=== PATIENT | male | born 1955 | race Caucasian/White ===

== ENCOUNTER 2023-07-31 09:29 | Emergency (ER) | payer MEDICARE, SELFPAY ==
[2023-07-31] VITALS (12 sets, daily range): BP systolic 132–171; BP diastolic 75–93; PULSE 51–65; TEMP 37; O2SAT 94–97; BMI 27.0
--- NOTE | 2023-07-31 09:41 | ECG_ITS ---
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
--- NOTE | 2023-07-31 09:41 | CT_ITS ---
The [address] [address] Patient Name: ALVIN JUNG MRN: [id number] date: 1955 Sex: M Assigned Patient Location: ER Current Patient Location: ER Accession/Order Number: [id number] Exam Date: 07/31/2023 09:45 Report Date: 07/31/2023 10:07 At the request of: FRANK ESCOBAR Procedure: CT stroke head/brain wo con EXAMINATION: CT stroke head/brain wo con HISTORY: right sided paresthesia COMPARISON: No relevant comparison available. TECHNIQUE: Axial CT images were obtained without IV contrast. Dose reduction techniques were achieved by using automated exposure control and/or adjustment of mA and/or kV according to patient size and/or use of iterative reconstruction technique. FINDINGS: BRAIN: Old lacunar infarctions within the basal ganglia bilaterally. No edema, hemorrhage, mass, acute infarction, or inappropriate atrophy. CSF SPACES: No hydrocephalus, subarachnoid hemorrhage, or mass. Appropriate for age. SKULL: No fracture, mass, or other significant visible lesion. SINUSES: Scattered areas of mild-moderate mucosal thickening. ORBITS: No appreciable abnormality on the limited views. OTHER: Negative CT/CT stroke head/brain wo con IMPRESSION: 1. No intracranial hemorrhage or CT evidence of acute ischemia. 2. Old lacunar infarctions within the basal ganglia bilaterally. 3. Chronic sinusitis. Findings discussed with Reynold in the emergency department to be relayed to Dr. Escobar. Electronically authenticated by: BROOKLYN WILSON Date: 07/31/2023 10:07
--- NOTE | 2023-07-31 09:44 | ED_ITS ---
HPI - Neuro Symptoms/Deficit General Chief Complaint: Neuro Symptoms/Deficit Stated Complaint: CVA SYMPTOMS Time Seen by Provider: 07/31/23 09:31 History of Present Illness HPI Narrative: Patient saw Dr Robertson at the office this morning and was sent to the ED to rule out acute CVA. This morning the patient developed tingling/numbness to the right face and hand around 830am. He is able to talk, ambulate and move all extremities normally, no facial droop. Dr Robertson called and told me that the neuro exam in the office was normal except for the subjective tingling sensations. The patient left us know that he had dental surgery to the right side of his mouth last week. Around 1030pm on 07/29/23 he developed the same tingling/numbness to the right face and right hand while watching, but it went away on its own a short time later. During that initial episode, he once again did not have any facial droop, slurred speech, motor weakness or paralysis Related Data Previous Rx's ?Medication ?Instructions ?Recorded aspirin 81 mg capsule 81 mg PO DAILY #30 caps 07/31/23 clopidogrel 75 mg tablet (Plavix) 75 mg PO DAILY #30 tabs 07/31/23 Allergies Allergy/AdvReac Type Severity Reaction Status Date / Time dexamethasone AdvReac Severe hiccups Verified 07/31/23 09:39 Penicillins AdvReac Intermediate Hives Verified 07/31/23 09:39 Exam Narrative Exam Narrative: Nurses notes and vital signs reviewed and patient is not hypoxic. afebrile General: Well-appearing and in no apparent distress. Skin: Warm, dry, no pallor noted. Head: Normocephalic, atraumatic. Neck: Supple, non-tender. No meningismus. Eye: Pupils are equal, round and EOMI. No scleral icterus. Ears, Nose, Mouth, and Throat: No slurred speech, facial droop or tongue deviation on Extrusion. He is able to wrinkle his forehead symmetrically Cardiovascular: Regular Rate and Rhythm without murmur, gallop or rub. Respiratory: No accessory muscle use or respiratory distress. Lungs are clear to auscultation, no wheezing, rales or rhonchi Musculoskeletal: normal ROM Without pronator drift. 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 No tenderness to palpation. Neurological: A&O x4. No cranial nerve dysfunction observed. No truncal atax ia. Moves all extremities. Sensation intact. NIH score equals 0 Psychiatric: Cooperative and interactive. Normal mood and affect. Constitutional Vital Signs, click to edit/add: Last Vital Signs Temp 98.6 F 07/31/23 09:32 Pulse 52 L 07/31/23 10:46 Resp 18 07/31/23 10:46 BP 149/75 H 07/31/23 10:57 Pulse Ox 94 L 07/31/23 10:46 O2 Del Method Room Air 07/31/23 09:32 Course Vital Signs Vital signs: Vital Signs Temperature 98.6 F 07/31/23 09:32 Pulse Rate 65 07/31/23 09:32 Respiratory Rate 16 07/31/23 09:32 Blood Pressure 171/91 H 07/31/23 09:32 Pulse Oximetry 97 07/31/23 09:32 Oxygen Delivery Method Room Air 07/31/23 09:32 Temperature 98.6 F 07/31/23 09:32 Pulse Rate 52 L 07/31/23 10:46 Respiratory Rate 18 07/31/23 10:46 Blood Pressure 149/75 H 07/31/23 10:57 Pulse Oximetry 94 L 07/31/23 10:46 Oxygen Delivery Method Room Air 07/31/23 09:32 MDM - Neuro Symptoms/Deficit MDM Narrative Medical decision making narrative: Patient was sent for noncontrast CT scan of brain per stroke protocol. Patient was placed on bus monitor and EKG obtained. Blood drawn and sent for evaluation. Radiologist called me and reported that non contrast head CT was negative for acute ICH - patient ordered to get CTA head & neck. These were negative for aneurysm, ICH or areas of decreased flow with old lacunar infarctions within the basal ganglia bilaterally but no significant atherosclerotic disease, according to the radiologist's report. He will need an out-patient thryroid US for right lobe nodule, which I let Dr Robertson know about. Case discussed with Dr Robertson and we reviewed the patient's CT scan results, including the physical exam findings. It was decided that the patient would be loaded with plavix, go home with prescriptions for aspirin 81mg and Plavix 75mg daily and see Ailyn in the office for follow up with immediate ED return if he developed any motor dysfunction including ataxia and cranial nerve deficit. Differential Diagnosis Differential diagnosis: Likely subarachnoid hemorrhage, peripheral neuropathy, cerebrovascular accident and transient cerebral ischemia Medical Records Attestation: I reviewed the patient's medical records. Lab Data Attestation: I reviewed the patient's lab results. Labs: Lab Results 07/31/23 Range/Units 10:36 WBC 4.3 (4.0-11.0) 10^3/uL RBC 4.40 L (4.70-6.10) 10^6/uL Hgb 12.9 L (14.0-18.0) g/dL Hct 40.3 L (42.0-54.0) % MCV 91.6 (80.0-94.0) fL MCH 29.3 (25.9-34.0) pg MCHC 32.0 (29.9-35.2) g/dL RDW 11.9 (11.0-15.0) % Plt Count 249 (150-450) 10^3/uL MPV 8.5 L (9.5-13.5) fL Neut % (Auto) 59.9 (43.0-75.0) % Lymph % (Auto) 27.9 (20.5-60.0) % [place] % (Auto) 6.5 (1.7-12.0) % Eos % (Auto) 4.8 (0.9-7.0) % Baso % (Auto) 0.9 (0.2-2.0) % Neut # (Auto) 2.6 (1.4-6.5) 10^3/uL Lymph # (Auto) 1.2 (1.2-3.8) 10^3/uL [place] # (Auto) 0.3 (0.3-0.8) 10^3/uL Eos # (Auto) 0.2 (0.0-0.7) 10^3/uL Baso # (Auto) 0.0 (0.0-0.1) 10^3/uL Abs Immat Gran (auto) 0.00 (0.00-0.03) 10^3/uL Imm/Tot Granulo (auto) 0.0 (0.0-0.5) % PT 11.3 (9.0-11.6) sec INR 1.07 APTT 30.8 (22.3-36.2) sec Sodium 139 (136-145) mmol/L Potassium 4.5 (3.5-5.1) mmol/L Chloride 104 (98-107) mmol/L Carbon Dioxide 28.5 (21.0-32.0) mmol/L Anion Gap 11.0 BUN 15.0 (7.0-18.0) mg/dL Creatinine 0.96 (0.70-1.30) mg/dL Est GFR ( Amer) >60 (>=60) Est GFR (Non-Af Amer) >60 (>=60) BUN/Creatinine Ratio 15.6 Glucose 107 H (74-106) mg/dL Calcium 8.4 L (8.5-10.1) mg/dL Total Bilirubin 0.7 (0.2-1.0) mg/dL AST 18 (15-37) U/L ALT 22 (16-63) U/L Alkaline Phosphatase 68 (46-116) U/L Total Protein 5.7 L (6.4-8.2) g/dL Albumin 3.0 L (3.4-5.0) g/dL Globulin 2.7 g/dL Albumin/Globulin Ratio 1.[address] scan - head: Attestation: I have reviewed the pertinent imaging results. Radiologist's impression: ITS Impressions Brain CT 07/31/23 09:41 IMPRESSION: 1. No intracranial hemorrhage or CT evidence of acute ischemia. 2. Old lacunar infarctions within the basal ganglia bilaterally. 3. Chronic sinusitis. Findings discussed with Reynold in the emergency department to be relayed to Dr. Escobar. Electronically authenticated by: BROOKLYN WILSON Date: 07/31/2023 10:07 Head CTA 07/31/23 10:07 IMPRESSION: 1. Old lacunar infarctions within the basal ganglia bilaterally. 2. Normal CT angiography of the head and neck. 3. No significant atherosclerotic disease. 4. Nonspecific 1.5 cm nodule within right thyroid lobe. Consider nonemergent ultrasound follow-up. 5. Paranasal chronic sinusitis. Electronically authenticated by: BROOKLYN WILSON Date: 07/31/2023 11:16 Neck CTA 07/31/23 10:07 IMPRESSION: 1. Old lacunar infarctions within the basal ganglia bilaterally. 2. Normal CT angiography of the head and neck. 3. No significant atherosclerotic disease. 4. Nonspecific 1.5 cm nodule within right thyroid lobe. Consider nonemergent ultrasound follow-up. 5. Paranasal chronic sinusitis. Electronically authenticated by: BROOKLYN WILSON Date: 07/31/2023 11:16 ECG Data Attestation: I personally reviewed and interpreted this ECG as follows: Interpretation: EKG interpretation: Emergency Department physician interpretation. Normal sinus rhythm at 57bpm. Normal axis, normal intervals and no ST segment elevation or depression. Normal EKG. Discharge Plan Discharge Stand Alone Forms: Portal Instructions Chief Complaint: Neuro Symptoms/Deficit Clinical Impression: Paresthesia, Basal ganglia infarction Patient Disposition: Home, Self-Care Time of Disposition Decision: 11:27 Prescriptions / Home Meds: New aspirin 81 mg capsule 81 mg PO DAILY Qty: 30 0RF clopidogrel [Plavix] 75 mg tablet 75 mg PO DAILY Qty: 30 0RF Print Language: Luxembourgish Instructions: Paresthesia (ED) Referrals: Duc Robertson MD [Primary Care Provider] - 1 week
--- NOTE | 2023-07-31 10:07 | CT_ITS ---
[address] [address] Patient Name: ALVIN JUNG MRN: [id number] date: 1955 Sex: M Assigned Patient Location: ER Current Patient Location: LAB Accession/Order Number: [id number] Exam Date: 07/31/2023 10:23 Report Date: 07/31/2023 11:16 At the request of: FRANK CAPPS Procedure: CT angio head EXAMINATION: CT angio neck, CT angio head HISTORY: right facial and right hand paresthesia COMPARISON: CT head without contrast 07/31/2023 TECHNIQUE: Axial, Coronal, and Sagittal CT images with IV contrast. Multi-planar/3-D imaging to optimize visualization of vascular anatomy. Percent stenosis is based on NASCET criteria. Dose reduction techniques were achieved by using automated exposure control and/or adjustment of mA and/or kV according to patient size and/or use of iterative reconstruction technique. FINDINGS: HEAD: VASCULATURE: No significant stenosis. No visible aneurysm or vascular malformation. VENTRICLES: No enlargement or displacement. CEREBRUM: Old lacunar infarctions within the basal ganglia bilaterally. No excessive atrophy, mass, or hemorrhage, or abnormal enhancement. CEREBELLUM: No excessive atrophy, mass, or hemorrhage, or abnormal enhancement. BRAINSTEM: No excessive atrophy, mass, or hemorrhage, or abnormal enhancement. BASAL CISTERNS: No subarachnoid hemorrhage or effacement. SKULL: Negative. NECK: RIGHT INTERNAL CAROTID: No hemodynamically significant stenosis or dissection. EXTERNAL CAROTID: No hemodynamically significant stenosis or dissection. COMMON CAROTID: No hemodynamically significant stenosis or dissection. VERTEBRAL: No hemodynamically significant stenosis or dissection. LEFT INTERNAL CAROTID: No hemodynamically significant stenosis or dissection. EXTERNAL CAROTID: No hemodynamically significant stenosis or dissection. COMMON CAROTID: No hemodynamically significant stenosis or dissection. VERTEBRAL: No hemodynamically significant stenosis or dissection. OTHER: 1.5 cm nodule within right thyroid lobe. Mucosal thickening within the paranasal sinuses. There is seen now busy so [ CT/CT angio head IMPRESSION: 1. Old lacunar infarctions within the basal ganglia bilaterally. 2. Normal CT angiography of the head and neck. 3. No significant atherosclerotic disease. 4. Nonspecific 1.5 cm nodule within right thyroid lobe. Consider nonemergent ultrasound follow-up. 5. Paranasal chronic sinusitis. Electronically authenticated by: BROOKLYN WILSON Date: 07/31/2023 11:16
--- NOTE | 2023-07-31 10:07 | CT_ITS ---
[address] [address] Patient Name: ALVIN JUNG MRN: [id number] date: 1955 Sex: M Assigned Patient Location: ER Current Patient Location: LAB Accession/Order Number: [id number] Exam Date: 07/31/2023 10:23 Report Date: 07/31/2023 11:16 At the request of: FRANK CAPPS Procedure: CT angio neck EXAMINATION: CT angio neck, CT angio head HISTORY: right facial and right hand paresthesia COMPARISON: CT head without contrast 07/31/2023 TECHNIQUE: Axial, Coronal, and Sagittal CT images with IV contrast. Multi-planar/3-D imaging to optimize visualization of vascular anatomy. Percent stenosis is based on NASCET criteria. Dose reduction techniques were achieved by using automated exposure control and/or adjustment of mA and/or kV according to patient size and/or use of iterative reconstruction technique. FINDINGS: HEAD: VASCULATURE: No significant stenosis. No visible aneurysm or vascular malformation. VENTRICLES: No enlargement or displacement. CEREBRUM: Old lacunar infarctions within the basal ganglia bilaterally. No excessive atrophy, mass, or hemorrhage, or abnormal enhancement. CEREBELLUM: No excessive atrophy, mass, or hemorrhage, or abnormal enhancement. BRAINSTEM: No excessive atrophy, mass, or hemorrhage, or abnormal enhancement. BASAL CISTERNS: No subarachnoid hemorrhage or effacement. SKULL: Negative. NECK: RIGHT INTERNAL CAROTID: No hemodynamically significant stenosis or dissection. EXTERNAL CAROTID: No hemodynamically significant stenosis or dissection. COMMON CAROTID: No hemodynamically significant stenosis or dissection. VERTEBRAL: No hemodynamically significant stenosis or dissection. LEFT INTERNAL CAROTID: No hemodynamically significant stenosis or dissection. EXTERNAL CAROTID: No hemodynamically significant stenosis or dissection. COMMON CAROTID: No hemodynamically significant stenosis or dissection. VERTEBRAL: No hemodynamically significant stenosis or dissection. OTHER: 1.5 cm nodule within right thyroid lobe. Mucosal thickening within the paranasal sinuses. There is seen now busy so [ CT/CT angio neck IMPRESSION: 1. Old lacunar infarctions within the basal ganglia bilaterally. 2. Normal CT angiography of the head and neck. 3. No significant atherosclerotic disease. 4. Nonspecific 1.5 cm nodule within right thyroid lobe. Consider nonemergent ultrasound follow-up. 5. Paranasal chronic sinusitis. Electronically authenticated by: BROOKLYN WILSON Date: 07/31/2023 11:16
[2023-07-31 10:47] LABS: Basophils Percent Auto 0.9 % (0.2-2.0); Eosinophils Absolute Auto 0.2 10^3/uL (0.0-0.7); Eosinophils Percent Auto 4.8 % (0.9-7.0); Hematocrit 40.3 % (42.0-54.0); Hemoglobin 12.9 g/dL (14.0-18.0); Lymphocytes Absolute Auto 1.2 10^3/uL (1.2-3.8); Lymphocytes Percent Auto 27.9 % (20.5-60.0); Mean Corpuscular Hemoglobin 29.3 pg (25.9-34.0); Mean Corpuscular Volume 91.6 fL (80.0-94.0); Mean Platelet Volume 8.5 fL (9.5-13.5); Monocytes Absolute Auto 0.3 10^3/uL (0.3-0.8); Monocytes Percent Auto 6.5 % (1.7-12.0); Neutrophils Absolute Auto 2.6 10^3/uL (1.4-6.5); Neutrophils Percent Auto 59.9 % (43.0-75.0); Platelet Count 249 10^3/uL (150-450); Red Cell Distribution Width 11.9 % (11.0-15.0); White Blood Count 4.3 10^3/uL (4.0-11.0)
[2023-07-31 11:05] LABS: INR 1.07; Partial Thromboplastin Time 30.8 sec (22.3-36.2); Prothrombin Time 11.3 sec (9.0-11.6)
[2023-07-31 11:11] LABS: Alanine Aminotransferase 22 U/L (16-63); Albumin Globulin Ratio 1.1; Alkaline Phosphatase 68 U/L (46-116); Aspartate Amino Transferase 18 U/L (15-37); BUN Creatinine Ratio 15.6; Bilirubin Total 0.7 mg/dL (0.2-1.0); Calcium 8.4 mg/dL (8.5-10.1); Carbon Dioxide 28.5 mmol/L (21.0-32.0); Chloride 104 mmol/L (98-107); Estimated GFR (African America >60 (>=60); Estimated GFR (Non-African Ame >60 (>=60); Globulin 2.7 g/dL; Glucose 107 mg/dL (74-106); Potassium 4.5 mmol/L (3.5-5.1); Sodium 139 mmol/L (136-145); Total Protein 5.7 g/dL (6.4-8.2)
[2023-07-31] MEDS: ASPIRIN 81 MG TABLET.DR PO (11:48)
[2023-07-31] MEDS: CLOPIDOGREL BISULFATE 75 MG TABLET 300 MG PO (11:48)
== END 2023-07-31 11:56 | disposition home or self-care (01) ==
PROVIDERS: Emergency Provider Emergency Medicine; PCP Family Medicine
DX: R20.2 Paresthesia of skin (principal); Z86.73 Personal history of transient ischemic attack (TIA), and cerebral infarction without residual deficits
CPT/HCPCS: 36415; 70450; 70496; 70498; 80053; 85025; 85610; 85730; 93005; 99285; Q9967

== ENCOUNTER 2023-08-04 14:50 | Outpatient (OUT) | payer MEDICARE, SELFPAY ==
--- NOTE | 2023-08-04 14:54 | US_ITS ---
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 TECHNIQUE: Sonographic images of the thyroid gland were obtained. FINDINGS: The right thyroid lobe is normal in size and contour measuring 4.0 x 1.4 x 1.4 cm. 5 mm cystic lesion with peripheral calcification The thyroid isthmus measures 2.2 mm, normal. The left thyroid lobe is normal in size measuring 4.0 x 1.5 x 1.5 cm. Single nodule stenting into the isthmus. Nodule 1:1.6 x 1.2 x 1.3 cm. Mixed solid and cystic, hypoechoic, tall, smooth margins, no calcifications. Color flow is identified in the soft tissue components. TR 4 US/US thyroid IMPRESSION: 1.6 cm left thyroid TR 4 nodule, consider fine-needle aspiration TI-RADS: The [employer] TI-RADS committee's white paper recommendations for thyroid lesions classified as TR4 (moderately suspicious) are listed below: > 1.0 cm. Follow-up ultrasound in 1, 2, 3, and 5 years. > 1.5 cm. FNA. J. Am Uzair Radiol 2017;14:587-595. Electronically authenticated by: JAKUB PASCAL Date: 08/04/2023 15:27
== END 2023-08-04 14:51 | disposition home or self-care (01) ==
LOC: US 14:50
PROVIDERS: PCP Family Medicine; Visit Provider Family Medicine
DX: E04.1 Nontoxic single thyroid nodule (principal)
CPT/HCPCS: 76536

== ENCOUNTER 2023-08-18 12:13 | Day surgery (SDC) | payer MEDICARE, SELFPAY ==
--- NOTE | 2023-08-18 12:18 | US_ITS ---
The [address] [address] Patient Name: ALVIN JUNG MRN: [id number] date: 1955 Sex: M Assigned Patient Location: US Current Patient Location: US Accession/Order Number: [id number] Exam Date: 08/18/2023 12:20 Report Date: 08/18/2023 13:22 At the request of: OLIVIA SALEH Procedure: US biopsy thyroid EXAMINATION: US biopsy thyroid HISTORY: thyroid nodule COMPARISON: No relevant comparison available. TECHNIQUE: After obtaining informed consent, an ultrasound-guided biopsy was performed in the usual sterile manner. FINDINGS: IMAGING: Ultrasound BIOPSY NEEDLE: 25-gauge, 2 SPECIMEN TYPE, #, LOCATION: 4 fine-needle aspirates, right 1.6 cm thyroid nodule MEDICATION: 2 cc 1% buffered lidocaine COMPLICATIONS: None. LABORATORY: Pathology and molecular studies pending OTHER: Negative. US/US biopsy thyroid IMPRESSION: Uneventful ultrasound guided biopsy. The patient was instructed to obtain follow up care and biopsy results from the referring physician. Electronically authenticated by: JAKUB PASCAL Date: 08/18/2023 13:22
[2023-08-18 12:25] VITALS: BP 150/89; PULSE 59; O2SAT 97
[2023-08-18] MEDS: LIDOCAINE HCL 10 ML, SODIUM BICARBONATE 1 MEQ INJ (13:00)
--- NOTE | 2023-08-18 13:56 | SUR.PREOP ---
08/08/23 Pt instructed on procedure, date, time, and prep. Pt made aware to hold ASA and Clopidogrel for 5 days prior to the biopsy.
== END 2023-08-18 13:20 | disposition home or self-care (01) ==
LOC: US 12:13
PROVIDERS: Radiology Diagnostic Radiology; PCP Family Medicine; Visit Provider Family Medicine
DX: E04.1 Nontoxic single thyroid nodule (principal)
CPT/HCPCS: 10005; 88173

== ENCOUNTER 2023-09-11 08:19 | Outpatient (OUT) | payer MEDICARE, SELFPAY ==
--- OUTSIDE RECORDS SUMMARY | 2023-09-11 08:33 | XMS_ITS | CCD ---
Author Organization [facility] Care Team Providers Care Aerodynamics Professor Name Role Phone DR OLIVIA ROBERTSON Admitting Unavailable DR OLIVIA ROBERTSON Attending Unavailable DR OLIVIA ROBERTSON Primary Care Unavailable DR OLIVIA ROBERTSON Consulting Unavailable Kristen Concepcion Unavailable Deirdre Bradley Unavailable NICHOLAS Bradley Attending Provider Olivia Robertson Primary Care Unavailable Smith Tirado V Attending Unavailable Smith Tirado V Admitting Unavailable MD Olivia Robertson Primary Care Provider [phone] MD Smith Tirado V Attending Provider Allergies Allergy Classification Reported Allergen(s) Allergy Type Date of Onset Reaction(s) Facility (1 source) Penicillin Drug Allergy 12-24-2016 [facility] Repository (2 sources) Penicillin G Drug Allergy [employer] [place] [employer] Other (1 source) Penicillin Drug Allergy 11-05-2021 [facility] Repository Medications Current Medications Medication Drug Class(es) Dates Sig (Normalized) Sig (Original) methylPREDNISolone 4 mg oral tablet (1 source) Corticosteroid Start: 2 methylPREDNISolone 4 MG as directed Orally Once a day for 6 days Oct, Active Completed/Discontinued Medications Medication Drug Class(es) Dates Sig (Normalized) Sig (Original) Ciprofloxacin (2 sources) Quinolone Antimicrobial Ciprofloxacin HCl Not-Taking ibuprofen 800 mg oral tablet (2 sources) Nonsteroidal Anti-inflammatory Drug Start: 04-27-2017 take 1 tablet by mouth three times daily at mealtime as needed Ibuprofen 800 MG 1 tablet with food or milk as needed Orally Three times a day as needed for 30 days Apr, Not-Taking mupirocin 0.02 mg/mg topical ointment (2 sources) RNA Synthetase Inhibitor Antibacterial Start: 10-30-2021 Mupirocin 2 % 1 application Externally Twice a day for 7 days Oct, Not-Taking tamsulosin (2 sources) alpha-Adrenergic Tushar Tamsulosin HCl Not-Taking Triamcinolone (2 sources) Corticosteroid Start: 04-27-2017 KENALOG - 10 mg Apr, 60 mg Problems Active Problems Problem Classification Problem Date Documented Da te Episodic/Chronic Cancer of prostate (4 sources) Malignant neoplasm of prostate; Translations: [MALIGNANT NEOPLASM OF PROSTATE] Onset: 08-01-2021 Chronic Deficiency and other anemia (1 source) Anemia, unspecified; Translations: [ANEMIA UNSPECIFIED] Onset: 08-02-2021 Episodic Diabetes mellitus without complication (1 source) Other abnormal glucose; Translations: [OTHER ABNORMAL GLUCOSE] Onset: 08-02-2021 Episodic Disorders of lipid metabolism (1 source) Hyperlipidemia, unspecified; Translations: [HYPERLIPIDEMIA UNSPECIFIED] Onset: 08-02-2021 Chronic Other screening for suspected conditions (not mental disorders or infectious disease) (1 source) Encounter for screening for malignant neoplasm of prostate; Translations: [ENC SCREEN MALIG NEOPLASM PROSTATE] Onset: 08-02-2021 Episodic Residual codes; unclassified (1 source) Pain, unspecified; Translations: [Pain, unspecified] Onset: 07-31-2023 Episodic Past or Other Problems Problem Classification Problem Date Documented Da te Episodic/Chronic Other injuries and conditions due to external causes (1 source) Other injury of unspecified body region, initial encounter Onset: 10-30-2021 Resolved: 10-30-2021 Episodic Other non-traumatic joint disorders (1 source) Pain in left knee Onset: 11-05-2021 Resolved: 11-05-2021 Episodic Other non-traumatic joint disorders (1 source) Effusion, left knee Onset: 11-05-2021 Resolved: 11-05-2021 Episodic Results Test Name Value Interpretation Reference Range Facility [facility] 08-18-2023 L Specimen: [id number] Received: 08/19/23 Status: AXEL [facility] Num: [id number] Spec Type: Cytology Subm Dr: Smith Tirado MD Tissues: A FNA SLIDES NOPATH (RT THRYOUID NOD) Procedures: Cyto Int and Re, PAPSTN/7 Age/ Patient Sex Location Account Attending Physician Jeff Chawla 68/M LABELL [id number] Smith Tirado MD SPEC NUM: [id number] RECD: 08/19/23 STATUS: AXEL VELA NUM: [id number] DANIS: 08/18/23- SUBM DR: Smith Tirado MD ENTERED: 08/19/[address]: Antonia,Lab Olivia Robertson MD SPEC TYPE: Cytology DEPT: [facility] ENTERED BY: [id number] RECV BY: [id number] ORDERED: Cyto Int and Re, PAPSTN/7 ORDERED: Cyto Int and Re, PAPSTN/7 Pathological Diagnosis Right thyroid nodule, FNA cytology: -Adequate for assessment -The [place] system is category 2: Benign -Quite a few histiocytes are intermixed with occasional small follicular cells with associated fibrin trapping and the minor related cytologic artifact, otherwise is consistent with sampling of the colloid cyst -ThinPrep smear also showing similar findings, including a few small follicular groups with bland looking small follicular cells Gross Description Received in Cytolyt labeled with the patient's name, date of and right thyroid nodule per requisition is <1 ml pale pink clear fixed fluid. 1 Thin Prep slides are prepared. 6 smears, spray fixed to be stained pap are additionally received. (CC/nh) CPT Codes 14945 Specimen: [id number] Received: 08/19/23 Status: AXEL Vela Num: [id number] Spec Type: Cytology Subm Dr: Smith Tirado MD Tissues: A FNA SLIDES NOPATH (RT THRYOUID NOD) Procedures: Cyto Int and Re, PAPSTN/7 Patient: Jeff Chawla [id number] (Continued) Signed (signatur e on file) Ailin Brock MD 08/20/23 1736 Normal [facility] XR knee LT 4V*on 11-05-2021 XR knee LT 4V* [facility] [employer] Other XR knee LT 4V* [facility] [employer] Other XR knee LT 4V* [address] [place] [address] [employer] Other XR knee LT 4V* [place] [address] No [facility] [employer] Other XR knee LT 4V* XRay Report [employer] Other XR knee LT 4V* Signed [employer] Other XR knee LT 4V* Patient: Jeff Chawla MR#: [id number] [place] [employer] Other XR knee LT 4V* 018 [employer] Other XR knee LT 4V* : 1955 Acct:[id number] [employer] Other XR knee LT 4V* Age/Sex: 66 / M ADM Date: 11/05/21 [employer] Other XR knee LT 4V* Loc: XDUCLY Room: Type: REG CLI [employer] Other XR knee LT 4V* Attending Dr: Deirdre Bradley [facility] [employer] Other XR knee LT 4V* Copies [facility]: [facility] [employer] Other XR knee LT 4V* Ordering Provider: [facility] [employer] Other XR knee LT 4V* Date of Service: 11/05/21 [employer] Other XR knee LT 4V* XR/XR knee LT 4V*: M25.562 [employer] Other XR knee LT 4V* CLINICAL DATA: Patient injured left knee kneeling 6 days ago and was punctured by nails. Continued [employer] Other XR knee LT 4V* pain. [employer] Other XR knee LT 4V* LEFT KNEE - 4 views N [place] Other XR knee LT 4V* COMPARISON: None [place] Other XR knee LT 4V* AP, lateral and oblique views were obtained. There is no acute fracture or dislocation. There is [employer] Other XR knee LT 4V* minor marginal spurring. There are enthesophytes at the insertion of the quadriceps tendon and at [employer] Other XR knee LT 4V* the origin and insertion of the patellar tendon. There is a small knee effusion. Slight [employer] Other XR knee LT 4V* infrapatellar soft tissue swelling is present. No radiopaque foreign bodies are visualized. [employer] Other XR knee LT 4V* XR/XR knee LT 4V* [employer] Other XR knee LT 4V* IMPRESSION: [employer] Other XR knee LT 4V* MILD DEGENERATIVE CHANGES. [employer] Other XR knee LT 4V* NO ACUTE BONY FINDINGS. [employer] Other XR knee LT 4V* Impression dictated by: Romana Silva M.D.11/05/2021 10:33 AM [employer] Other XR knee LT 4V* Dictation Location: [facility]-- [employer] Other XR knee LT 4V* Transcribed By: PWS 11/05/21 1033 [employer] Other XR knee LT 4V* Dictated By: Romana Silva MD 11/05/21 1030 [employer] Other XR knee LT 4V* Signed By: [employer] Other XR knee LT 4V* 11/05/21 1033 [employer] Other INSULINon 08-02-2021 Insulin 11.1 uIU/mL Normal 2.6-24.9 [facility] Comment on above: Performed By: #### I NSULIN #### [facility] [address] [address] [address] Bennett Brock CBC AUTO DIFFon 08-01-2021 BASO # 0.1 103/ul Normal 0.0-0.1 [facility] Comment on above: Performed By: #### C BC #### [facility] [address] [place] [address] Dr. Bennett Brock Basophils/100 WBC (Bld) 1.0 % Normal 0.2-2.0 [facility] Comment on above: Performed By: #### C BC #### [facility] [address] [place] [address] Dr. Bennett Brock EO # 0.3 103/ul Normal 0.0-0.7 [facility] Comment on above: Performed By: #### C BC #### [facility] [address] [place] [address] Dr. Bennett Brock Eosinophils/100 WBC (Bld) 6.3 % Normal 0.9-7.0 [facility] Comment on above: Performed By: #### C BC #### [facility] [address] [place] [address] Dr. Bennett Brock Erythrocyte distribution width (RBC) [Ratio] 12.1 % Normal 11.0-15.0 [facility] Comment on above: Performed By: #### C BC #### [facility] [address] [place] [address] Dr. Bennett Brock Hematocrit (Bld) [Volume fraction] 45.3 % Normal 42.0-54.0 [facility] Comment on above: Performed By: #### C BC #### [facility] [address] [place] [address] Dr. Bennett Brock Hemoglobin (Bld) [Mass/Vol] 14.2 g/dL Normal 14.0-18.0 [facility] Comment on above: Performed By: #### C BC #### [facility] [address] [place] [address] Dr. Bennett Brock IG # 0.01 10e3/ul Normal 0.00-0.03 [facility] Comment on above: Performed By: #### C BC #### [facility] [address] [place] [address] Dr. Bennett Brock IG % 0.2 % Normal 0.0-0.5 [facility] Comment on above: Performed By: #### C BC #### [facility] [address] [place] [address] Dr. Bennett Brock LYMPH # 1.4 103/ul Normal 1.2-3.8 [facility] Comment on above: Performed By: #### C BC #### [facility] [address] [place] [address] Dr. Bennett Brock Lymphocytes/100 WBC (Bld) 29.3 % Normal 20.5-60.0 [facility] Comment on above: Performed By: #### C BC #### [facility] [address] [place] [address] Dr. Bennett Brock MANUAL DIFF REQ NO Normal [facility] Comment on above: Performed By: #### C BC #### [facility] [address] [place] [address] Dr. Bennett Brock MCH (RBC) [Entitic mass] 29.0 pg Normal 25.9-34.0 [facility] Comment on above: Performed By: #### C BC #### [facility] [address] [place] [address] Dr. Bennett Brock MCHC (RBC) [Mass/Vol] 31.3 g/dL Normal 29.9-35.2 [facility] Comment on above: Performed By: #### C BC #### [facility] [address] [place] [address] Dr. Bennett Brock MCV (RBC) [Entitic vol] 92.4 fL Normal 80.0-94.0 [facility] Comment on above: Performed By: #### C BC #### [facility] [address] [place] [address] Dr. Bennett Brock MONO # 0.3 103/ul Normal 0.3-0.8 [facility] Comment on above: Performed By: #### C BC #### [facility] [address] [place] [address] Dr. Bennett Brock Monocytes/100 WBC (Bld) 7.1 % Normal 1.7-12.0 [facility] Comment on above: Performed By: #### C BC #### [facility] [address] [place] [address] Dr. Bennett Brock NEUT # 2.7 103/ul Normal 1.4-6.5 [facility] Comment on above: Performed By: #### C BC #### [facility] [address] [place] [address] Dr. Bennett Brock Neutrophils/100 WBC (Bld) 56.1 % Normal 43.0-75.0 [facility] Comment on above: Performed By: #### C BC #### [facility] [address] [place] [address] Dr. Bennett Brock Platelet mean volume (Bld) [Entitic vol] 9.0 fL Critically low 9.5-13.5 [facility] Comment on above: Performed By: #### C BC #### [facility] [address] [place] [address] Dr. Bennett Brock PLT 261 103/ul Normal 150-450 [facility] Comment on above: Performed By: #### C BC #### [facility] [address] [place] [address] Dr. Bennett Brock RBC 4.90 106/ul Normal 4.70-6.10 [facility] Comment on above: Performed By: #### C BC #### [facility] [address] [place] [address] Dr. Bennett Brock WBC 4.8 103/ul Normal 4.0-11.0 [facility] Comment on above: Performed By: #### C BC #### [facility] [address] [place] [address] Dr. Bennett Brock FREE THYROXINE INDEX T7on FTI 2.31 Normal [facility] Comment on above: Performed By: #### C MP, TSH, T7, LIPID #### [facility] [address] [place] [address] Dr. Bennett Brock T3U 33.0 % Normal 23.5-40.5 [facility] Comment on above: Performed By: #### C MP, TSH, T7, LIPID #### [facility] [address] [place] [address] Dr. Bennett Brock T4 [Mass/Vol] 7.00 ug/dL Normal 5.53-11.00 [facility] Comment on above: Performed By: #### C MP, TSH, T7, LIPID #### [facility] [address] [address] [address] Bennett Brock GLYCOHEMOGLOBIN A1Con 2021 ADA RECOMMENDATION ADA THERAPEUTIC TARGET 6.0 - 7.0 ACTION SUGGESTED > 7.0 Normal [facility] Comment on above: Performed By: #### A 1C #### [facility] [address] [address] [address] Bennett Brock Glucose [Mass/Vol] 126 mg/dL Normal [facility] Comment on above: Performed By: #### A 1C #### [facility] [address] [place] [address] Dr. Bennett Brock HbA1c (Bld) [Mass fraction] 6.0 % Normal <=6.0 [facility] Comment on above: Performed By: #### A 1C #### [facility] [address] [address] [address] Bennett Brock IRONon 08-01-2021 Iron [Mass/Vol] 93.0 ug/dL Normal 49.0-181.0 [facility] Comment on above: Performed By: #### P SASC, IRON #### [facility] [address] [address] [address] Bennett Brock LIPID PROFILEon 08-01-2021 CHOL-HDL RATIO NORM SEE BELOW Normal [facility] Comment on above: Result Comment: 3.3 - 4.4 LOW RISK 4.4 - 7.1 AVERAGE RISK 7.1 - 11.0 MODERATE RISK >11.0 HIGH RISK Performed By: #### C MP, TSH, T7, LIPID #### [facility] [address] [address] [address] Bennett Brock Cholesterol [Mass/Vol] 206 mg/dL Critically high <=200 [facility] Comment on above: Performed By: #### C MP, TSH, T7, LIPID #### [facility] [address] [address] [address] Bennett Brock Cholesterol in HDL [Mass/Vol] 49 mg/dL Normal 40-60 [facility] Comment on above: Performed By: #### C MP, TSH, T7, LIPID #### [facility] [address] [address] [address] Bennett Brock Cholesterol in LDL [Mass/Vol] 141.2 mg/dL Normal [facility] Comment on above: Performed By: #### C MP, TSH, T7, LIPID #### [facility] [address] [address] [address] Bennett Brock Cholesterol.total/Ch olesterol in HDL [Mass ratio] 4.2 {ratio} Normal [facility] Comment on above: Performed By: #### C MP, TSH, T7, LIPID #### [facility] [address] [place] [address] Dr. Bennett Brock HDL NORMAL > or = 60 mg/dl - LOW CARDIOVASCULAR RISK <40 mg/dl - HIGH CARDIOVASCULAR RISK Normal [facility] Comment on above: Performed By: #### C MP, TSH, T7, LIPID #### [facility] [address] [place] [address] Dr. Bennett Brock LDL CALC NORMAL SEE BELOW Normal [facility] Comment on above: Result Comment: <100 mg/dl OPTIMAL 100 - 129 mg/dl NEAR OR ABOVE OPTIMAL 130 - 159 mg/dl BORDERLINE HIGH 160 - 189 mg/dl HIGH >190 mg/dl VERY HIGH Performed By: #### C MP, TSH, T7, LIPID #### [facility] [address] [address] [address] Bennett Brock Triglyceride [Mass/Vol] 79 mg/dL Normal <=150 [facility] Comment on above: Performed By: #### C MP, TSH, T7, LIPID #### [facility] [address] [place] [address] Dr. Bennett Brock VLDL CALC 15.8 mg/dL Normal [facility] Comment on above: Performed By: #### C MP, TSH, T7, LIPID #### [facility] [address] [place] [address] Dr. Bennett Brock PROF 14(COMP METB)on 022 Albumin [Mass/Vol] 3.6 g/dL Normal 3.4-5.0 [facility] Comment on above: Performed By: #### C MP, TSH, T7, LIPID #### [facility] [address] [place] [address] Dr. Bennett Brock Albumin/Globulin [Mass ratio] 1.1 {ratio} Normal [facility] Comment on above: Performed By: #### C MP, TSH, T7, LIPID #### [facility] [address] [place] [address] Dr. Bennett Brock ALP [Catalytic activity/Vol] 83 U/L Normal 46-116 [facility] Comment on above: Performed By: #### C MP, TSH, T7, LIPID #### [facility] [address] [place] [address] Dr. Bennett Brock ALT [Catalytic activity/Vol] 24 U/L Normal 16-63 [facility] Comment on above: Performed By: #### C MP, TSH, T7, LIPID #### [facility] [address] [address] [address] Bennett Brock Anion gap [Moles/Vol] 10.9 mmol/L Normal [facility] Comment on above: Performed By: #### C MP, TSH, T7, LIPID #### [facility] [address] [place] [address] Dr. Bennett Brock AST [Catalytic activity/Vol] 15 U/L Normal 15-37 [facility] Comment on above: Performed By: #### C MP, TSH, T7, LIPID #### [facility] [address] [address] [address] Bennett Brock Bilirubin [Mass/Vol] 0.6 mg/dL Normal 0.2-1.3 [facility] Comment on above: Performed By: #### C MP, TSH, T7, LIPID #### [facility] [address] [address] [address] Bennett Brock Calcium [Mass/Vol] 8.5 mg/dL Normal 8.5-10.1 [facility] Comment on above: Performed By: #### C MP, TSH, T7, LIPID #### [facility] [address] [address] [address] Bennett Brock Chloride [Moles/Vol] 106 mmol/L Normal 98-107 [facility] Comment on above: Performed By: #### C MP, TSH, T7, LIPID #### [facility] [address] [place] [address] Dr. Bennett Brock CO2 [Moles/Vol] 30.7 mmol/L Critically high 22.0-30.0 [facility] Comment on above: Performed By: #### C MP, TSH, T7, LIPID #### [facility] [address] [place] [address] Dr. Bennett Brock Creatinine [Mass/Vol] 0.88 mg/dL Normal 0.66-1.25 [facility] Comment on above: Performed By: #### C MP, TSH, T7, LIPID #### [facility] [address] [place] [address] Dr. Bennett Brock EGFR-AF ESTONIAN >60 Normal >=60 [facility] Comment on above: Performed By: #### C MP, TSH, T7, LIPID #### [facility] [address] [place] [address] Dr. Bennett Brock EGFR-NON AF ESTONIAN >60 Normal >=60 [facility] Comment on above: Performed By: #### C MP, TSH, T7, LIPID #### [facility] [address] [place] [address] Dr. Bennett Brock Globulin (S) [Mass/Vol] 3.2 g/dL Normal [facility] Comment on above: Performed By: #### C MP, TSH, T7, LIPID #### [facility] [address] [place] [address] Dr. Bennett Brock Glucose [Mass/Vol] 103 mg/dL Normal 74-106 [facility] Comment on above: Performed By: #### C MP, TSH, T7, LIPID #### [facility] [address] [place] [address] Dr. Bennett Brock Potassium [Moles/Vol] 4.6 mmol/L Normal 3.4-5.0 [facility] Comment on above: Performed By: #### C MP, TSH, T7, LIPID #### [facility] [address] [place] [address] Dr. Bennett Brock Protein [Mass/Vol] 6.8 g/dL Normal 6.1-8.2 [facility] Comment on above: Performed By: #### C MP, TSH, T7, LIPID #### [facility] [address] [place] [address] Dr. Bennett Brock Sodium [Moles/Vol] 143 mmol/L Normal 137-145 [facility] Comment on above: Performed By: #### C MP, TSH, T7, LIPID #### [facility] [address] [place] [address] Dr. Bennett Brock Urea nitrogen [Mass/Vol] 16.0 mg/dL Normal 7.0-18.0 [facility] Comment on above: Performed By: #### C MP, TSH, T7, LIPID #### [facility] [address] [place] [address] Dr. Bennett Brock Urea nitrogen/Creatinine [Mass ratio] 18.2 mg/mg Normal [facility] Comment on above: Performed By: #### C MP, TSH, T7, LIPID #### [facility] [address] [place] [address] Dr. Bennett Brock TSHon 08-01-2021 TSH 1.968 uIU/mL Normal 0.470-4.680 [facility] Comment on above: Performed By: #### C MP, TSH, T7, LIPID #### [facility] [address] [place] [address] Dr. Bennett Brock TSH RANGE SEE BELOW Normal [facility] Comment on above: Result Comment: <0.3 4 UIU/ml HYPERTHYROID 0.34-5.60 UIU/ml EUTHYROID >5.60 UIU/ml HYPOTHYROID Performed By: #### C MP, TSH, T7, LIPID #### [facility] [address] [place] [address] Dr. Bennett Brock Vital Signs Date Time Vital Sign Value Performing Clinician Facility 11-05-2021 10:30-0400 Body height 186.69 cm Deirdre Bradley Other [employer] Other 11-05-2021 10:30-0400 Body mass index (BMI) [Ratio] 26.42 kg/m2 Deirdre Bradley Other [employer] Other 11-05-2021 10:30-0400 Body temperature 97 [degF] Deirdre Bradley Other [employer] Other 11-05-2021 10:30-0400 Body weight 92.08 kg Deirdre Bradlye Other [employer] Other 11-05-2021 10:30-0400 Diastolic blood pressure 95 mm[Hg] Deirdre Bradley Other [employer] Other 11-05-2021 10:30-0400 Respiratory rate 18 /min Deirdre Bradley Other [employer] Other 11-05-2021 10:30-0400 SaO2% (BldA) [Mass fraction] 97 % Deirdre Bradley Other [employer] Other 11-05-2021 10:30-0400 Systolic blood pressure 156 mm[Hg] Deirdre Bradley Other [employer] Other 10-30-2021 13:35-0400 Body height 186.69 cm Kristen Concepcion Other [employer] Other 10-30-2021 13:35-0400 Body mass index (BMI) [Ratio] 26.49 kg/m2 Kristen Concepcion Other [employer] Other 10-30-2021 13:35-0400 Body temperature 98.8 [degF] Kristen Concepcion Other [employer] Other 10-30-2021 13:35-0400 Body weight 92.35 kg Kristen Concepcion Other [employer] Other 10-30-2021 13:35-0400 Diastolic blood pressure 88 mm[Hg] Kristen Concepcion Other [employer] Other 10-30-2021 13:35-0400 Respiratory rate 18 /min Kristen Concepcion Other [employer] Other 10-30-2021 13:35-0400 SaO2% (BldA) [Mass fraction] 96 % Kristne Concepcion Other [employer] Other 10-30-2021 13:35-0400 Systolic blood pressure 139 mm[Hg] Kristen Concepcion Other [employer] Other Encounters Encounter Date Encounter Type Care Provider Facility Start: 08-18-2023 End: 08-18-2023 ambulatory Olivia Robertson Facility:[facility] Start: 08-18-2023 End: 08-18-2023 ambulatory MD Olivia Robertson Work Phone: [facility] Work Phone: Start: 08-18-2023 End: 08-18-2023 Departed Referred MD Olivia Robertson Work Phone: [facility] Start: 07-31-2023 ambulatory [facility] Start: 11-05-2021 End: 11-05-2021 ambulatory Deirdre Bradley Other [employer] Other Start: 11-05-2021 Office outpatient visit 15 minutes Deirdre Bradley [facility] Start: 11-05-2021 End: 11-05-2021 Patient encounter procedure DIRECTOR OF RESOURCE DEVELOPMENT-C Deirdrebridget Bradley Work Phone: [facility] Start: 10-30-2021 End: 10-30-2021 ambulatory Kristen Concepcion Other [employer] Other Start: 10-30-2021 Office outpatient ne w 20 minutes Kristen Concepcion [facility] Start: 08-01-2021 End: 08-02-[address] OLIVIA ROBERTSON Facility:[facility] Procedures Date Procedure Procedure Detail Performing Clinician Start: 11-05-2021 Radiologic examinati on of knee DIRECTOR OF RESOURCE DEVELOPMENT-C Deirdre Bradley Work Phone: Start: 08-01-[address] CANDACE ROBERTSON Comment on above: Performed By: #### P SASC, IRON #### [facility] [address] [place] [address] Dr. Bennett Brock Immunizations Immunization Date Immunization Notes Care Provider Nikki cruz 10-30-2021 tetanus toxoid, reduced diphtheria toxoid, and acellular pertussis vaccine, adsorbed Kristen Concepcion Other [facility] varicella zoster immune globulin Kristen Concepcion Other [employer] Other Payers Date Payer Category Payer Self-pay 1959 Medicare [id number] 1955 Unknown [id number] Unknown [id number] Social History Date Type Detail Facility Unknown if ever smoked [employer] Other Sex Assigned At Sex Assigned At Bir th [employer] Other Start: 1955 Sex Assigned At Male F [facility] Start: 08-19-2023 Tobacco smoking status NHIS Ex-smoker (finding) [facility] Evaluation note 11-05-2021 Note Date & Type Note Facility 11-05-2021 Evaluation note Encounter Date Diagnosis Assessment Notes Oct, Acute pain of left knee (ICD-10 - M25.562) Oct, Effusion, left knee (ICD-10 - M25.462) Use RICE therapy as discussed: Rest, Ice Compression, Elevate. Apply ice to affected area 3-4 times daily (Do not place ice source directly on skin, must cover with towel-like material). Take medication as directed. Rest and elevate sore extremity as much as possible. Do not take OTC medication pain relievers if prescription of medication given in office today. Contact office if no improvement of symptoms and we will help you get into a specialist. [employer] Other Evaluation note 10-30-2021 Note Date & Type Note Facility 10-30-2021 Evaluation note Encounter Date Diagnosis Assessment Notes Oct, Puncture wound (ICD-10 - T14.8XXA) Wound care provided today in office. Tetanus updated. Advised to clean with warm soap and water twice a day. Apply rx of Mupirocin ointment as directed. Follow up if signs/symptoms of infection occur. Patient verbalizes understanding and is agreeable with treatment plan [employer] Other Evaluation note Note Date & Type Note Facility Evaluation note No assessment information availa [facility] Work Phone: History general Narrative - Reported Note Date & Type Note Facility History general Narrative - Reported Type Medical History Prostate cancer Medical History Kidney stones Surgical History prostatectomy Surgical History amputation, toes Hospitalization History see above [employer] Other Summary Purpose Family History Relationship Condition Age at Onset Recorded Date/T darryn father Renal failure Unknown Malignant neoplasm Unknown Unknown sister Malignant neoplasm Unknown Advance Directives Advance Directive Response Recorded Date/ Time Advance Directives No November 11 1:25pm Chief Complaint and Reason for Visit Chief Complaint M25.562 Chief Complaint Unknown Additional Source Comments (unrecognized sect ion and content) No Status Records FoundNo Status Records FoundNo Status Records Found INFORMATION SOURCE (unrecogn ized section and content) DATE CREATED AUTHOR 08/03/2021 [facility] DATE CREATED AUTHOR AUTHOR'S ORGANIZ ATION 08/01/2023 [facility] DATE CREATED AUTHOR AUTHOR'S ORGANIZ ATION 08/20/2023 [facility] REASON FOR VISIT (unrecogniz ed section and content) HE KNELT DOWN ON A BIG NAIL ON LEFT KNEELEFT KNEE PAIN, SEEN ON 10/30 FOR PUNCTURE WOUND Care Teams (unrecognized sec tion and content) Team Status: Inactive Member Role Status Dates NICHOLAS Yeung Attending Provider Active Team Status: Active Member Role Status Dates Olivia Robertson MD Primary Care Provider Active Team Status: Inactive Member Role Status Dates Olivia Robertson MD Primary Care Provider Active Start: August 18, 2023 End: August 18, 2023 Smith Tirado MD Attending Provider Active Star t: August 18, 2023 End: August 18, 2023 Goals (unrecognized section and content) Goals may be documented in a n alternate section FOR RECORDS PERTAINING TO PATIENTS WHO ARE OR HAVE BEEN ENROLLED IN A CHEMICAL DEPENDENCY/SUBSTANCEABUSE PROGRAM, SOME INFORMATION MAY BE OMITTED. This clinical summary was aggregated from multiple sources. Caution should be exercised in using it in the provision of clinical care. This summary normalizes information from multiple sources, and as a consequence, information in this document may materially change the coding, format and clinical context of patient data. In addition, data may be omitted in some cases. CLINICAL DECISIONS SHOULD BE BASED ON THE PRIMARY CLINICAL RECORDS. [employer] provides no warranty or guarantee of the accuracy or completeness of information in this document.
[2023-09-11 08:50] LABS: Basophils Absolute Auto 0.1 10^3/uL (0.0-0.1); Basophils Percent Auto 0.9 % (0.2-2.0); Eosinophils Absolute Auto 0.4 10^3/uL (0.0-0.7); Eosinophils Percent Auto 7.6 % (0.9-7.0); Hematocrit 46.9 % (42.0-54.0); Hemoglobin 14.9 g/dL (14.0-18.0); Immature Granulocytes Abs Auto 0.01 10^3/uL (0.00-0.03); Immature Granulocytes Pct Auto 0.2 % (0.0-0.5); Lymphocytes Absolute Auto 1.5 10^3/uL (1.2-3.8); Lymphocytes Percent Auto 26.8 % (20.5-60.0); Mean Corpuscular HGB Conc 31.8 g/dL (29.9-35.2); Mean Corpuscular Hemoglobin 28.9 pg (25.9-34.0); Mean Corpuscular Volume 91.1 fL (80.0-94.0); Mean Platelet Volume 8.6 fL (9.5-13.5); Monocytes Absolute Auto 0.4 10^3/uL (0.3-0.8); Monocytes Percent Auto 6.7 % (1.7-12.0); Neutrophils Absolute Auto 3.1 10^3/uL (1.4-6.5); Neutrophils Percent Auto 57.8 % (43.0-75.0); Platelet Count 296 10^3/uL (150-450); Red Blood Count 5.15 10^6/uL (4.70-6.10); White Blood Count 5.4 10^3/uL (4.0-11.0)
[2023-09-11 09:37] LABS: Estimated Average Glucose 126 mg/dL
[2023-09-11 09:55] LABS: Alanine Aminotransferase 27 U/L (16-63); Albumin Level 3.5 g/dL (3.4-5.0); Alkaline Phosphatase 84 U/L (46-116); Anion Gap 11.6; Aspartate Amino Transferase 19 U/L (15-37); BUN Creatinine Ratio 19.6; Bilirubin Total 0.9 mg/dL (0.2-1.0); Calcium 8.6 mg/dL (8.5-10.1); Carbon Dioxide 29.8 mmol/L (21.0-32.0); Chloride 108 mmol/L (98-107); Cholesterol 221 mg/dL (<=200); Estimated GFR (African America >60 (>=60); Estimated GFR (Non-African Ame >60 (>=60); Free T3 2.62 pg/mL (2.18-3.98); Globulin 3.4 g/dL; Glucose 102 mg/dL (74-106); HDL Cholesterol 55 mg/dL (40-60); Potassium 4.4 mmol/L (3.5-5.1); Sodium 145 mmol/L (136-145); Total Protein 6.9 g/dL (6.4-8.2); Triglycerides 81 mg/dL (<=150); VLDL CHOLESTEROL 16.2 mg/dL
[2023-09-11 15:40] LABS: Internal Control Within Normal Limits; Occult Blood Negative
[2023-09-12 08:13] LABS: PSA, Free <0.02 ng/mL; Prostate Specific Ag <0.1 ng/mL (0.0-4.0)
== END 2023-09-11 08:20 | disposition home or self-care (01) ==
LOC: LAB 08:21
PROVIDERS: PCP Family Medicine; Visit Provider Family Medicine
DX: R20.2 Paresthesia of skin (principal); C61 Malignant neoplasm of prostate; L30.9 Dermatitis, unspecified; E78.5 Hyperlipidemia, unspecified; R73.09 Other abnormal glucose; Z12.12 Encounter for screening for malignant neoplasm of rectum; Z12.5 Encounter for screening for malignant neoplasm of prostate
CPT/HCPCS: 36415; 80053; 80061; 83036; 84153; 84154; 84436; 84443; 84481; 85025; G0328

== ENCOUNTER 2024-01-09 13:54 | Outpatient (OUT) | payer MEDICARE, SELFPAY ==
--- OUTSIDE RECORDS SUMMARY | 2024-01-09 13:58 | XMS_ITS | CCD ---
Author Organization [facility] Care Team Providers Care Director Institution Name Role Phone DR OLIVIA ROBERTSON Admitting Unavailable DR OLIVIA ROBERTSON Attending Unavailable DR OLIVIA ROBERTSON Primary Care Unavailable DR OLIVIA ROBERTSON Consulting Unavailable Kristen Concepcion Unavailable Deirdre Bradley Unavailable NICHOLAS Bradley Attending Provider MD Olivia Robertson Primary Care Provider [phone] MD Smith Tirado V Attending Provider [phone] MD Olivia Robertson Primary Care Provider [phone] MIRANDA Kaplan Attending Provider Olivia Robertson Primary Care Unavailable Smith Tirado V Admitting Unavailable Smith Tirado V Attending Unavailable Olivia Robertson Primary Care Unavailable Veronica Kaplan Admitting Unavailable Veronica Kaplan Attending Unavailable Allergies Allergy Classification Reported Allergen(s) Allergy Type Date of Onset Reaction(s) Facility (1 source) Penicillin Drug Allergy 12-24-2016 [facility] Repository (2 sources) Penicillin G Drug Allergy [facility] Other (1 source) Penicillin Drug Allergy 01-05-2024 [facility] Repository Medications Current Medications Medication Drug Class(es) Dates Sig (Normalized) Sig (Original) clopidogrel 75 mg oral tablet (2 sources) P2Y12 Platelet Inhibitor Start: 4 take 1 tablet by mouth once daily Clopidogrel (Plavix) 75 mg tablet Active 75 MG PO Daily January 05, 2024 12:00am methylPREDNISolone 4 mg oral tablet (1 source) [...] Translations: [HYPERLIPIDEMIA UNSPECIFIED] Onset: 08-02-2021 Chronic Other injuries and conditions due to external causes (2 sources) Arthropathy of joint of right hand; Translations: [Unspecified injury of right wrist, hand and finger(s), initial encounter] 01-05-2024 Episodic Other injuries and conditions due to external causes (2 sources) Injury of right hand; Translations: [Unspecified injury of right wrist, hand and finger(s), initial encounter] 01-05-2024 Episodic Other injuries and conditions due to external causes (2 sources) Unspecified injury of right wrist, hand and finger(s), initial encounter; Translations: [Finger injury] 01-05-2024 Episodic Other screening for suspected conditions (not mental [...] Test Name Value Interpretation Reference Range Facility XR hand RT min 3V*on 024 XR hand RT min 3V* [facility] [address] [place], [place] [id number] XRay Report Signed Patient: Jeff Chawla MR#: [id number] : 1955 Acct:[id number] Age/Sex: 68 / M ADM Date: 01/05/24 Loc: XDUC Room: Type: [facility] Attending Dr: Veronica Kaplan APRN Copies to: Veronica Kaplan APRN Ordering Provider: Veronica Kaplan APRN Date of Service: 01/05/24 XR/XR hand RT min 3V*: RIGHT HAND PAIN RIGHT HAND - 3 views CLINICAL DATA: Pain and swelling after hitting right hand on patient's dog's head yesterday. Pain is greatest at the third fourth and fifth metacarpals COMPARISON: None AP, lateral and oblique views were obtained. There is osteopenia. There is no acute fracture or dislocation. There are mild scattered degenerative changes including at the first carpal metacarpal joint. There may be an old ununited ulnar styloid fracture. Minor soft tissue swelling is present over the dorsum of the metacarpal heads. XR/XR hand RT min 3V* IMPRESSION: NO ACUTE BONY INJURY. Impression dictated by: Romana Silva M.D.01/05/2024 12:22 PM Dictation Location: RADIO-PC-10 Transcribed By: PAT 01/05/24 1222 Dictated By: Romana Silva MD 01/05/24 1219 Signed By: 01/05/24 1222 Normal [facility] 08-18-2023 L Specimen: Received: 08/19/23 Status: AXEL Vela Num: [id number] Spec Type: Cytology Subm Dr: Smith Tirado MD Tissues: A FNA SLIDES NOPATH (RT THRYOUID NOD) Procedures: Cyto Int and Re, PAPSTN/7 Age/ Patient Sex Location Account Attending Physician Jeff Chawla 68/M LABELL [id number] Smith Tirado MD SPEC NUM: [id number] RECD: 08/19/23 STATUS: AXEL VELA NUM: [id number] DANIS: 08/18/23 DR: Smith Tirado MD ENTERED: 08/19/[address]: Antonia,Lab Olivia Robertson MD SPEC TYPE: Cytology DEPT: [facility] ENTERED BY: [id number] RECV BY: [id number] ORDERED: Cyto Int and Re, PAPSTN/7 ORDERED: Cyto Int and Re, PAPSTN/7 Pathological Diagnosis Right thyroid nodule, FNA cytology: -Adequate for assessment -The [place] system is category 2: Benign -Quite a [...] pap are additionally received. (CC/nh) CPT Codes 20121 Specimen: [id number] Received: 08/19/23-1416 Status: AXEL Vela Num: [id number] Spec Type: Cytology Subm Dr: Smith Tirado MD Tissues: A FNA SLIDES NOPATH (RT THRYOUID NOD) Procedures: Cyto Int and Re, PAPSTN/7 Patient: Jeff Chalwa [id number] (Continued) Signed (signatur e on file) Ailin Brock MD 08/20/23 1736 Normal [facility] XR knee LT 4V*on 11-05-2021 XR knee LT 4V* [facility] Other XR knee LT 4V* [facility] [employer] Other XR knee LT 4V* [address] [place] [address] [employer] Other XR knee LT 4V* [place] [address] No rt [employer] Other XR knee LT 4V* XRay Report [employer] Other XR knee LT 4V* Signed [employer] Other XR knee LT 4V* Patient: Jeff Chawla MR#: [id number] [facility] Other XR knee LT 4V* 018 [employer] Other XR knee LT 4V* : 1955 Acct:[id number] [facility] Other XR knee LT 4V* Age/Sex: 66 / M ADM Date: 11/05/21 [facility] Other XR knee LT 4V* Loc: XDUCLY Room: Type: REG CLI [facility] Other XR knee LT 4V* Attending Dr: Deirdre Bradley [facility] Other XR knee LT 4V* Copies to: DEIRDRE BRADLEY [facility] Other XR knee LT 4V* Ordering Provider: [facility]ADLEY [facility] Other XR knee LT 4V* Date of Service: 11/05/21 [facility] Other XR knee LT 4V* XR/XR knee LT 4V*: M25.562 [facility] Other XR knee LT 4V* CLINICAL DATA: Patient injured left knee kneeling 6 days ago and was punctured by nails. Continued [facility] Other XR knee LT 4V* pain. [employer] Other XR knee LT 4V* LEFT KNEE - 4 views N [employer] Other XR knee LT 4V* COMPARISON: None Nort [employer] Other XR knee LT 4V* AP, lateral and oblique views were obtained. There is no acute fracture or dislocation. There is [facility] Other XR knee LT 4V* minor marginal spurring. There are enthesophytes at the insertion of the quadriceps tendon and at [facility] Other XR knee LT 4V* the origin and insertion of the patellar tendon. There is a small knee effusion. Slight [facility] Other XR knee LT 4V* infrapatellar soft tissue swelling is present. No radiopaque foreign bodies are visualized. [facility] Other XR knee LT 4V* XR/XR knee LT 4V* [facility] Other XR knee LT 4V* IMPRESSION: [employer] Other XR knee LT 4V* MILD DEGENERATIVE CHANGES. [facility] Other XR knee LT 4V* NO ACUTE BONY FINDINGS. [facility] Other XR knee LT 4V* Impression dictated by: Romana Silva M.D.11/05/2021 10:33 AM [facility] Other XR knee LT 4V* Dictation Location: [facility]- [facility] Other XR knee LT 4V* Transcribed By: PAT 11/05/21 1033 [facility] Other XR knee LT 4V* Dictated By: Romana Silva MD 11/05/21 1030 [facility] Other XR knee LT 4V* Signed By: [employer] Other XR knee LT 4V* 11/05/21 1033 [email or web address] Other INSULINon 08-02-2021 Insulin 11.1 uIU/mL Normal 2.6-24.9 [facility] Comment on above: Performed By: #### I NSULIN #### [facility] [address] [place] [address] Dr. Bennett Brock CBC AUTO DIFFon 08-01-2021 BASO # 0.1 103/ul Normal 0.0-0.1 [facility] Comment on above: Performed By: #### C BC #### [facility] [address] [place] [address] Dr. Bennett Brock Basophils/100 WBC (Bld) 1.0 % Normal 0.2-2.0 [facility] Comment on above: Performed By: #### C BC #### [facility] [address] [place] [address] Dr. Bennett Brock EO # 0.3 103/ul Normal 0.0-0.7 [facility] Comment on above: Performed By: #### C BC #### [facility] [address] [place] [address] Dr. Bennett Brock Eosinophils/100 WBC (Bld) 6.3 % Normal 0.9-7.0 [facility] Comment on above: Performed By: #### C BC #### [facility] [address] [place] [address] Dr. Bennett Brock Erythrocyte distribution width (RBC) [Ratio] 12.1 % Normal 11.0-15.0 [facility] Comment on above: Performed By: #### C BC #### [facility] [address] [place] [address] Dr. Bennett Brock Hematocrit (Bld) [Volume fraction] 45.3 % Normal 42.0-54.0 [facility] Comment on above: Performed By: #### C BC #### [facility] [address] [place] [address] Dr. Bennett Brock Hemoglobin (Bld) [Mass/Vol] 14.2 g/dL Normal 14.0-18.0 [facility] Comment on above: Performed By: #### C BC #### [facility] [address] [place] [address] Dr. Bennett Brock IG # 0.01 10e3/ul Normal 0.00-0.03 [facility] Comment on above: Performed By: #### C BC #### [facility] [address] [place] [address] Dr. Bennett Brock IG % 0.2 % Normal 0.0-0.5 [facility] Comment on above: Performed By: #### C BC #### [facility] [address] [place] [address] Dr. Bennett Brock LYMPH # 1.4 103/ul Normal 1.2-3.8 [facility] Comment on above: Performed By: #### C BC #### [facility] [address] [place] [address] Dr. Bennett Brock Lymphocytes/100 WBC (Bld) 29.3 % Normal 20.5-60.0 [facility] Comment on above: Performed By: #### C BC #### [facility] [address] [place] [address] Dr. Bennett Brock MANUAL DIFF REQ NO Normal [facility] Comment on above: Performed By: #### C BC #### [facility] [address] [place] [address] Dr. Bennett Brock MCH (RBC) [Entitic mass] 29.0 pg Normal 25.9-34.0 [facility] Comment on above: Performed By: #### C BC #### [facility] [address] [place] [address] Dr. Bennett Brock MCHC (RBC) [Mass/Vol] 31.3 g/dL Normal 29.9-35.2 [facility] Comment on above: Performed By: #### C BC #### [facility] [address] [place] [address] Dr. Bennett Brock MCV (RBC) [Entitic vol] 92.4 fL Normal 80.0-94.0 [facility] Comment on above: Performed By: #### C BC #### [facility] [address] [address] [address] Bennett Brock MONO # 0.3 103/ul Normal 0.3-0.8 [facility] Comment on above: Performed By: #### C BC #### [facility] [address] [place] [address] Dr. Bennett Brock Monocytes/100 WBC (Bld) 7.1 % Normal 1.7-12.0 [facility] Comment on above: Performed By: #### C BC #### [facility] [address] [place] [address] Dr. Bennett Brock NEUT # 2.7 103/ul Normal 1.4-6.5 [facility] Comment on above: Performed By: #### C BC #### [facility] [address] [place] [address] Dr. Bennett Brock Neutrophils/100 WBC (Bld) 56.1 % Normal 43.0-75.0 [facility] Comment on above: Performed By: #### C BC #### [facility] [address] [place] [address] Dr. Bennett Brock Platelet mean volume (Bld) [Entitic vol] 9.0 fL Critically low 9.5-13.5 [facility] Comment on above: Performed By: #### C BC #### [facility] [address] [place] [address] Dr. Bennett Brock PLT 261 103/ul Normal 150-450 [facility] Comment on above: Performed By: #### C BC #### [facility] [address] [place] [address] Dr. Bennett Brock RBC 4.90 106/ul Normal 4.70-6.10 [facility] Comment on above: Performed By: #### C BC #### [facility] [address] [place] [address] Dr. Bennett Brock WBC 4.8 103/ul Normal 4.0-11.0 [facility] Comment on above: Performed By: #### C BC #### [facility] [address] [place] [address] Dr. Bennett Brock FREE THYROXINE INDEX T7on FTI 2.31 Normal [facility] Comment on above: Performed By: #### C MP, TSH, T7, LIPID #### [facility] [address] [address] [address] Bennett Brock T3U 33.0 % Normal 23.5-40.5 [facility] Comment on above: Performed By: #### C MP, TSH, T7, LIPID #### [facility] [address] [address] [address] Bennett Brock T4 [Mass/Vol] 7.00 ug/dL Normal 5.53-11.00 [facility] Comment on above: Performed By: #### C MP, TSH, T7, LIPID #### [facility] [address] [address] [address] Bennett Brock GLYCOHEMOGLOBIN A1Con 2021 ADA RECOMMENDATION ADA THERAPEUTIC TARGET 6.0 - 7.0 ACTION SUGGESTED > 7.0 Normal [facility] Comment on above: Performed By: #### A 1C #### [facility] [address] [address] [address] Bennett Brock Glucose [Mass/Vol] 126 mg/dL Normal [facility] Comment on above: Performed By: #### A 1C #### [facility] [address] [address] [address] Bennett Brock HbA1c (Bld) [Mass fraction] 6.0 % Normal <=6.0 [facility] Comment on above: Performed By: #### A 1C #### [facility] [address] [address] [address] Bennett Brock IRONon 08-01-2021 Iron [Mass/Vol] 93.0 ug/dL Normal 49.0-181.0 [facility] Comment on above: Performed By: #### P SASC, IRON #### [facility] [address] [address] [address] Bennett Brock LIPID PROFILEon 08-01-2021 CHOL-HDL RATIO NORM SEE BELOW Normal [facility] Comment on above: Result Comment: 3.3 - 4.4 LOW RISK 4.4 - 7.1 AVERAGE RISK 7.1 - 11.0 MODERATE RISK >11.0 HIGH RISK Performed By: #### C MP, TSH, T7, LIPID #### [facility] [address] [address] [address] Bennett Brock Cholesterol [Mass/Vol] 206 mg/dL Critically high <=200 [facility] Comment on above: Performed By: #### C MP, TSH, T7, LIPID #### [facility] [address] [address] [address] Bennett Brock Cholesterol in HDL [Mass/Vol] 49 mg/dL Normal 40-60 [facility] Comment on above: Performed By: #### C MP, TSH, T7, LIPID #### [facility] [address] [address] [address] Bennett Brock Cholesterol in LDL [Mass/Vol] 141.2 mg/dL Normal [facility] Comment on above: Performed By: #### C MP, TSH, T7, LIPID #### [facility] [address] [place] [address] Dr. Bennett Brock Cholesterol.total/Ch olesterol in HDL [Mass ratio] 4.2 {ratio} Normal [facility] Comment on above: Performed By: #### C MP, TSH, T7, LIPID #### [facility] [address] [place] [address] Dr. Bennett Brock HDL NORMAL > or = 60 mg/dl - LOW CARDIOVASCULAR RISK <40 mg/dl - HIGH CARDIOVASCULAR RISK Normal [facility] Comment on above: Performed By: #### C MP, TSH, T7, LIPID #### [facility] [address] [place] [address] Dr. Bennett Brock LDL CALC NORMAL SEE BELOW Normal [facility] Comment on above: Result Comment: <100 mg/dl OPTIMAL 100 - 129 mg/dl NEAR OR ABOVE OPTIMAL 130 - 159 mg/dl BORDERLINE HIGH 160 - 189 mg/dl HIGH >190 mg/dl VERY HIGH Performed By: #### C MP, TSH, T7, LIPID #### [facility] [address] [place] [address] Dr. Bennett Brock Triglyceride [Mass/Vol] 79 mg/dL Normal <=150 [facility] Comment on above: Performed By: #### C MP, TSH, T7, LIPID #### [facility] [address] [address] [address] Bennett Brock VLDL CALC 15.8 mg/dL Normal [facility] Comment on above: Performed By: #### C MP, TSH, T7, LIPID #### [facility] [address] [place] [address] Dr. Bennett Brock PROF 14(COMP METB)on 022 Albumin [Mass/Vol] 3.6 g/dL Normal 3.4-5.0 [facility] Comment on above: Performed By: #### C MP, TSH, T7, LIPID #### [facility] [address] [place] [address] Dr. Bennett Brock Albumin/Globulin [Mass ratio] 1.1 {ratio} Normal [facility] Comment on above: Performed By: #### C MP, TSH, T7, LIPID #### [facility] [address] [place] [address] Dr. Bennett Brock ALP [Catalytic activity/Vol] 83 U/L Normal 46-116 [facility] Comment on above: Performed By: #### C MP, TSH, T7, LIPID #### [facility] [address] [place] [address] Dr. Bennett Brock ALT [Catalytic activity/Vol] 24 U/L Normal 16-63 [facility] Comment on above: Performed By: #### C MP, TSH, T7, LIPID #### [facility] [address] [place] [address] Dr. Bennett Brock Anion gap [Moles/Vol] 10.9 mmol/L Normal [facility] Comment on above: Performed By: #### C MP, TSH, T7, LIPID #### [facility] [address] [place] [address] Dr. Bennett Brock AST [Catalytic activity/Vol] 15 U/L Normal 15-37 [facility] Comment on above: Performed By: #### C MP, TSH, T7, LIPID #### [facility] [address] [address] [address] Bennett Brock Bilirubin [Mass/Vol] 0.6 mg/dL Normal 0.2-1.3 [facility] Comment on above: Performed By: #### C MP, TSH, T7, LIPID #### [facility] [address] [address] [address] Bennett Brock Calcium [Mass/Vol] 8.5 mg/dL Normal 8.5-10.1 [facility] Comment on above: Performed By: #### C MP, TSH, T7, LIPID #### [facility] [address] [address] [address] Bennett Brock Chloride [Moles/Vol] 106 mmol/L Normal 98-107 [facility] Comment on above: Performed By: #### C MP, TSH, T7, LIPID #### [facility] [address] [place] [address] Dr. Bennett Brock CO2 [Moles/Vol] 30.7 mmol/L Critically high 22.0-30.0 [facility] Comment on above: Performed By: #### C MP, TSH, T7, LIPID #### [facility] [address] [address] [address] Bennett Brock Creatinine [Mass/Vol] 0.88 mg/dL Normal 0.66-1.25 [facility] Comment on above: Performed By: #### C MP, TSH, T7, LIPID #### [facility] [address] [address] [address] Bennett Brock EGFR-AF CITIZEN OF [place] >60 Normal >=60 [facility] Comment on above: Performed By: #### C MP, TSH, T7, LIPID #### [facility] [address] [address] [address] Bennett Brock EGFR-NON AF CITIZEN OF [place] >60 Normal >=60 [facility] Comment on above: Performed By: #### C MP, TSH, T7, LIPID #### [facility] [address] [address] [address] Bennett Brock Globulin (S) [Mass/Vol] 3.2 g/dL Normal [facility] Comment on above: Performed By: #### C MP, TSH, T7, LIPID #### [facility] [address] [address] [address] Bennett Brock Glucose [Mass/Vol] 103 mg/dL Normal 74-106 [facility] Comment on above: Performed By: #### C MP, TSH, T7, LIPID #### [facility] [address] [address] [address] Bennett Brock Potassium [Moles/Vol] 4.6 mmol/L Normal 3.4-5.0 [facility] Comment on above: Performed By: #### C MP, TSH, T7, LIPID #### [facility] [address] [place] [address] Dr. Bennett Brock Protein [Mass/Vol] 6.8 g/dL Normal 6.1-8.2 [facility] Comment on above: Performed By: #### C MP, TSH, T7, LIPID #### [facility] [address] [place] [address] Dr. Bennett Brock Sodium [Moles/Vol] 143 mmol/L Normal 137-145 [facility] Comment on above: Performed By: #### C MP, TSH, T7, LIPID #### [facility] [address] [place] [address] Dr. Bennett Brock Urea nitrogen [Mass/Vol] 16.0 mg/dL Normal 7.0-18.0 [facility] Comment on above: Performed By: #### C MP, TSH, T7, LIPID #### [facility] [address] [place] [address] Dr. Bennett Brock Urea nitrogen/Creatinine [Mass ratio] 18.2 mg/mg Normal [facility] Comment on above: Performed By: #### C MP, TSH, T7, LIPID #### [facility] [address] [place] [address] Dr. Bennett Brock TSHon 08-01-2021 TSH 1.968 uIU/mL Normal 0.470-4.680 [facility] Comment on above: Performed By: #### C MP, TSH, T7, LIPID #### [facility] [address] [place], [place] [address] Dr. Bennett Brock TSH RANGE SEE BELOW Normal [facility] Comment on above: Result Comment: <0.3 4 UIU/ml HYPERTHYROID 0.34-5.60 UIU/ml EUTHYROID >5.60 UIU/ml HYPOTHYROID Performed By: #### C MP, TSH, T7, LIPID #### [facility] [address] [place], [place] [address] Dr. Bennett Brock Vital Signs Date Time Vital Sign Value Performing Clinician Facility 01-05-2024 11:31-0400 Body height 187.96 cm MD Olivia Robertson Work Phone: [facility] 01-05-2024 11:31-0400 Body mass index (BMI) [Ratio] 27.3 kg/m2 MD Olivia Robertson Work Phone: [facility] 01-05-2024 11:31-0400 Body temperature 98.1 [degF] MD Olivia Robertson Work Phone: [facility] 01-05-2024 11:31-0400 Body weight 96.61 kg MD Olivia Robertson Work Phone: [facility] 01-05-2024 11:31-0400 Diastolic blood pressure 77 mm[Hg] MD Olivia Robertson Work Phone: [facility] 01-05-2024 11:31-0400 Heart rate 60 /min MD Olivia Robertson Work Phone: [facility] 01-05-2024 11:31-0400 SaO2% (BldA) [Mass fraction] 97 % MD Olivia Robertson Work Phone: [facility] 01-05-2024 11:31-0400 Systolic blood pressure 147 mm[Hg] MD Olivia Robertson Work Phone: [facility] 11-05-2021 10:30-0400 Body height 186.69 cm Deirdre Bradley Other [facility] Other 11-05-2021 10:30-0400 Body mass index (BMI) [Ratio] 26.42 kg/m2 Deirdre Bradley Other [facility] 11-05-2021 10:30-0400 Body temperature 97 [degF] Deirdre Bradley Other [facility] 11-05-2021 10:30-0400 Body weight 92.08 kg Deirdre Bradley Other [facility] Other 11-05-2021 10:30-0400 Diastolic blood pressure 95 mm[Hg] Deirdre Bradley Other [facility] Other 11-05-2021 10:30-0400 Respiratory rate 18 /min Deirdre Bradley Other [facility] Other 11-05-2021 10:30-0400 SaO2% (BldA) [Mass fraction] 97 % Deirdre Bradley Other [facility] Other 11-05-2021 10:30-0400 Systolic blood pressure 156 mm[Hg] Deirdre Bradley Other [facility] Other 10-30-2021 13:35-0400 Body height 186.69 cm Kristen Concepcion Other [facility] Other 10-30-2021 13:35-0400 Body mass index (BMI) [Ratio] 26.49 kg/m2 Kristen Concepcion Other [facility] Other 10-30-2021 13:35-0400 Body temperature 98.8 [degF] Kristen Concepcion Other [facility] Other 10-30-2021 13:35-0400 Body weight 92.35 kg Kristen Concepcion Other [facility] Other 10-30-2021 13:35-0400 Diastolic blood pressure 88 mm[Hg] Kristen Concepcion Other [facility] Other 10-30-2021 13:35-0400 Respiratory rate 18 /min Kristen Concepcion Other [facility] Other 10-30-2021 13:35-0400 SaO2% (BldA) [Mass fraction] 96 % Kristen Concepcion Other [facility] Other 10-30-2021 13:35-0400 Systolic blood pressure 139 mm[Hg] Kristen Concepcion Other [facility] Other Encounters Encounter Date Encounter Type Care Provider Facility Start: 01-05-2024 End: 01-05-2024 Patient encounter procedure MD Olivia Robertson Work Phone: [facility] Work Phone: Start: 01-05-2024 End: 01-05-2024 ambulatory MD Olivia Robertson Work Phone: [facility] Work Phone: Start: 01-05-2024 End: 01-05-2024 ambulatory MD Olivia Robertson Work Phone: [facility] Work Phone: Start: 01-05-2024 End: 01-05-2024 Patient encounter procedure MD Olivia Robertson Work Phone: [facility] Work Phone: Start: 08-18-2023 End: 08-18-2023 ambulatory MD Olivia Robertson Work Phone: [facility] Work Phone: Start: 08-18-2023 End: 08-18-2023 Departed Referred MD Olivia Robertson Work Phone: [facility] Start: 07-31-2023 ambulatory [facility] Start: 11-05-2021 End: 11-05-2021 ambulatory Deirdre Ludy Other [facility] Other Start: 11-05-2021 Office outpatient visit 15 minutes Deirdre Bradley [facility] Start: 11-05-2021 End: 11-05-2021 Patient encounter procedure [facility] Deirdre Bradley Work Phone: [facility] Start: 10-30-2021 End: 10-30-2021 ambulatory Kristen Concepcion Other [facility] Start: 10-30-2021 Office outpatient ne w 20 minutes Kristen Concepcion [facility] Start: 08-01-2021 End: 08-02-[address] OLIVIA ROBERTSON Facility:[facility] Procedures Date Procedure Procedure Detail Performing Clinician Start: 01-05-2024 Plain X-ray of right hand MD Olivia Robertson Work Phone: Start: 11-05-2021 Radiologic examinati on of knee [facility]-C Deirdre Bradley Work Phone: Start: 08-01-[address] CANDACE ROBERTSON Comment on above: Performed By: #### P [facility] #### [facility] [address] [place] [address] Dr. Bennett Brock Plan of Treatment Date Care Activity Detail Author XR Hand - right GE 3 Views F [facility] Immunizations Immunization Date Immunization Notes Care Provider Fa cility 10-30-2021 tetanus toxoid, reduced diphtheria toxoid, and acellular pertussis vaccine, adsorbed Kristen Concepcion Other [facility] varicella zoster immune globulin Kristen Concepcion Other [facility] Other Payers Date Payer Category Payer Self-pay 1959 Medicare [id number] 1955 Unknown [id number] Unknown [id number] Unknown [id number] Social History Date Type Detail Facility Unknown if ever smoked [facility] Other Sex Assigned At Sex Assigned At Bir th [facility] Other Start: 1955 Sex Assigned At Male F [facility] Start: 08-19-2023 Tobacco smoking status NHIS Ex-smoker (finding) [facility] Evaluation note 11-05-2021 Note Date & Type [...] will help you get into a specialist. [facility] Other Evaluation note 10-30-2021 Note Date & [...] understanding and is agreeable with treatment plan [facility] Other Evaluation note Note Date & Type Note Facility Evaluation note No assessment information availa ble [facility] Work Phone: Evaluation note Note Date & Type Note Facility Evaluation note Diagnosis Onset Date Jammed interphalangeal joint of finger of right hand acute [facility] Work Phone: History general Narrative - Reported Note Date & Type Note Facility History general Narrative - Reported Type Medical History Prostate cancer Medical History Kidney stones Surgical History prostatectomy Surgical History amputation, toes Hospitalization History see above [facility] Other Summary Purpose Family History No Family History Records Found Relationship Condition Age at Onset Recorded Date/T darryn father Renal failure Unknown Malignant neoplasm Unknown Unknown sister Malignant neoplasm Unknown Advance Directives No Advanced Directives Records Found Advance Directive Response Recorded Date/ Time Advance Directives No November 11 1:25pm Chief Complaint and Reason for Visit Chief Complaint M25.562 Chief Complaint Unknown Chief Complaint right had injury Reason for Visit Jammed interphalange al joint of finger of right hand Additional Source Comments (unrecognized sect ion and content) No Status Records FoundNo Status Records FoundNo Status Records Found INFORMATION SOURCE (unrecogn ized section and content) DATE CREATED AUTHOR 08/03/2021 [facility] DATE CREATED AUTHOR AUTHOR'S ORGANIZ ATION 08/01/2023 [facility] DATE CREATED AUTHOR AUTHOR'S ORGANIZ ATION 01/07/2024 [facility] REASON FOR VISIT (unrecogniz ed [...] August 18, 2023 End: August 18, 2023 Team Status: Inactive Member Role Status Dates Olivia Robertson MD Primary Care Provider Active Start: January 05, 2024 End: January 05, 2024 Veronica Kaplan APRN Attending Provider Active S tart: January 05, 2024 End: January 05, 2024 Team Status: Active Member Role Status Dates Olivia Robertson MD Primary Care Provider Active Start: January 05, 2024 Veronica Kaplan APRN Attending Provider Active S tart: January 05, 2024 Goals (unrecognized section and content) Goals may [...] BE BASED ON THE PRIMARY CLINICAL RECORDS. [employer] provides no warranty or guarantee of the accuracy or completeness of information in this document.
--- NOTE | 2024-01-09 14:02 | US_ITS ---
The [address] [address] Patient Name: ALVIN JUNG MRN: [id number] date: 1955 Sex: M Assigned Patient Location: US Current Patient Location: Accession/Order Number: [id number] Exam Date: 01/09/2024 14:03 Report Date: 01/10/2024 06:55 At the request of: OLIVIA SALEH Procedure: US thyroid EXAMINATION: US thyroid HISTORY: Thyroid Cyst COMPARISON: Ultrasound thyroid 08/04/2023 FINDINGS: RIGHT LOBE: Normal size and echotexture. Incidental 4 mm colloid cyst. Lobe size: 3.5 x 1.7 x 1.1 cm LEFT LOBE: Normal size and echotexture. Lobe size: 3.2 x 1.1 x 1.4 cm ISTHMUS: Mixed cystic and solid 15 x 11 x 9 mm nodule within right sided isthmus. Thickness: 2 mm US/US thyroid IMPRESSION: 1. Stable size of the isthmus nodule which now appears to be TR3 rather than TR 4, and was shown to be benign on recent biopsy. TR3 (mildly suspicious): > 1.5 cm, follow-up ultrasound in 1, 3, and 5 years. > 2.5 cm, fine needle aspiration. Electronically authenticated by: BROOKLYN WILSON Date: 01/10/2024 06:55
== END 2024-01-09 13:55 | disposition home or self-care (01) ==
LOC: US 13:54
PROVIDERS: PCP Family Medicine; Visit Provider Family Medicine
DX: E04.1 Nontoxic single thyroid nodule (principal)
CPT/HCPCS: 76536

== ENCOUNTER 2024-02-04 15:15 | Outpatient (OUT) | payer MEDICARE, SELFPAY ==
--- NOTE | 2024-02-04 | XR_ITS ---
The [address] [address] Patient Name: ALVIN JUNG MRN: [id number] date: 1955 Sex: M Assigned Patient Location: [facility] Current Patient Location: Accession/Order Number: [id number] Exam Date: 02/04/2024 15:30 Report Date: 02/08/2024 07:47 At the request of: OLIVIA SALEH Procedure: XR hand RT min 3V PROCEDURE: XR hand RT min 3V HISTORY: RIGHT HAND PAIN ; third and fourth metacarpophalangeal joint pain COMPARISON: None. FINDINGS: BONES:Multifocal mild degenerative joint disease. No fracture, dislocation, bone lesion. SOFT TISSUES:Mild dorsal soft tissue swelling. EFFUSION:None visible. OTHER: Negative. XR/XR hand RT min 3V IMPRESSION: 1. No acute bone abnormality. Electronically authenticated by: BROOKLYN WILSON Date: 02/08/2024 07:47
== END 2024-02-04 15:16 | disposition home or self-care (01) ==
LOC: RAD 15:16
PROVIDERS: PCP Family Medicine; Visit Provider Family Medicine
DX: M79.641 Pain in right hand (principal)
CPT/HCPCS: 73130

== ENCOUNTER 2025-01-05 10:24 | Outpatient (OUT) | payer MEDICARE, SELFPAY ==
--- OUTSIDE RECORDS SUMMARY | 2025-01-05 10:26 | XMS_ITS | Encounter Summary ---
Author Organization [facility] Address [id number] [address] [place] [address] Care Team Providers Care Community Service Director Name Role Phone Unavailable Primary Care Provider Unavailabl e Encounter Details Date Type Department Care Team (Late st Contact Info) Description 07/31/2023 Orders Only [facility] [place] [address] Transcribe, Orders Support User Pain (Primary Dx) Social History Tobacco Use Types Packs/Day Years Used Date Smoking Tobacco: Never Assessed Childcare Answer Date Recorded Childcare Unknown 09/23/2018 Employment Answer Date Recorded Employment Unknown 09/23/2018 Sex and Gender Information Value Date Recorded Sex Assigned at Not on file Legal Sex Male 11:53 AM EDT Gender Identity Not on file Sexual Orientation Not on file documented as of this encounter Plan of Treatment Not on file documented as of this encounter Results * CT angiogram head (07/31/2023 10:35 AM EDT) us Scanning Provider External IMG CT ORDERABLES Fin al Result * CT angiogram carotid (07/31/2023 10:30 AM EDT) us Scanning Provider External IMG CT ORDERABLES Fin al Result * CT brain without contrast (07/31/2023 9:50 AM EDT) us Scanning Provider External IMG CT ORDERABLES Fin al Result documented in this encounter Visit Diagnoses Diagnosis Pain- Primary Generalized pain documented in this encounter
--- OUTSIDE RECORDS SUMMARY | 2025-01-05 10:26 | XMS_ITS | Clinical Summary ---
Author Organization [facility] Healthcare Address [address] [place] [address] Care Team Providers Care Food Checker Name Role Phone Unavailable Primary Care Provider Unavailabl e Allergies Active Allergy Reactions Criticality Noted Date Comments Penicillins 01/30/2023 Other Reaction(s): hives Medications Aspirin Low Dose 81 MG EC tablet Take 81 mg by mouth Daily 4 Active clopidogrel (Plavix) 75 MG tablet Take 75 mg by mouth Daily 4 Active triamcinolone (Kenalog) 0.1 % cream Apply topically 2 (two) times a day to affected area 4 Active ketoconazole (NIZOral) 2 % shampooIndicati ons:Tinea versicolor Lather on scalp, back, and chest 2x a week, leave on 5 min before rinsing 120 mL 11 4 Active tacrolimus (Protopic) 0.1 % ointmentIndicat ions:Vitiligo Apply to affected areas, twice a day when flared, 30 day supply 30 g 11 4 Active lisinopril 10 MG tablet TAKE 1 TABLET BY MOUTH EVERY DAY FOR 30 DAYS 5 Active Active Problems No known active problems Social History Tobacco Use Types Packs/Day Years Used Date Smoking Tobacco: Never Smokeless Tobacco: Never Tobacco Cessation:Counseling Given: Not Answered Sex and Gender Information Value Date Recorded Sex Assigned at Not on file Legal Sex Male 6:51 PM EDT Gender Identity Not on file Sexual Orientation Not on file Last Filed Vital Signs Vital Sign Reading Time Taken Comments Blood Pressure 140/82 07/10/2017 12:00 PM EDT Pulse - - Temperature - - Respiratory Rate - - Oxygen Saturation - - Inhaled Oxygen Concentration - - Weight 99.3 kg (219 lb) 07/10/2017 12:00 PM EDT Height 185.4 cm (6' 1 ) 01/29/2022 12:00 PM EDT Body Mass Index 28.89 07/10/2017 12:00 PM EDT Plan of Treatment Upcoming Encounters Date Type Department Care Team (Late st Contact Info) Description 02/16/2025 1:15 PM EST Office Visit [facility] [address] [place] [address] Corinne Quiñones MD [address] [place] [address] Insurance MEDICARE [facility]
--- NOTE | 2025-01-05 10:27 | US_ITS ---
The [address] [address] Patient Name: ALVIN JUNG MRN: [id number] date: 1955 Sex: M Assigned Patient Location: US Current Patient Location: US Accession/Order Number: [id number] Exam Date: 01/05/2025 10:32 Report Date: 01/05/2025 12:33 At the request of: OLIVIA SALEH MD Procedure: US thyroid Thyroid ultrasound Reason for exam: Follow-up thyroid nodule. Negative biopsy. Comparison: Thyroid ultrasound 01/09/2024 Technique: Grayscale and color Doppler images of the thyroid gland were obtained. Findings: The right lobe measures 4.0 x 1.5 x 1.5 cm. The left lobe measures 4.1 x 1.5 x 1.1 cm. Isthmus measures 1.7 mm. A hypoechoic nodule seen involving the isthmus measuring 8 x 7 x 5 mm which appears to have decreased in size since the prior study. No additional nodules are seen. A colloid cyst is noted involving the right lobe. US/US thyroid Impression: Decrease in size of the hypoechoic nodule involving the isthmus now measuring 8 x 7 x 5 mm. This has been reportedly biopsied. Ultrasound follow-up in one year suggested. Impression dictated by: Ramone Barreto Jr., D.O. 01/05/2025 12:33 PM Dictation Location: [place] [address] Electronically authenticated by: [id number] Y Date: 01/05/2025 12:33
--- OUTSIDE RECORDS SUMMARY | 2025-01-05 10:31 | XMS_ITS | CCD ---
Author Organization [facility] Care Team Providers Care Parts Room Associate Name Role Phone DR OLIVIA ROBERTSON Admitting Unavailable DR OLIVIA ROBERTSON Attending Unavailable DR OLIVIA ROBERTSON Primary Care Unavailable DR OLIVIA ROBERTSON Consulting Unavailable Kristen Concepcion Unavailable Deirdre Bradley Unavailable NICHOLAS Bradley Attending Provider [phone] MD Olivia Robertson Primary Care Provider [phone] MD Smith Tirado V Attending Provider MD Olivia Robertson Primary Care Provider [phone] MIRANDA Kaplan Attending Provider Olivia Robertson Primary Care Unavailable Smith Tirado V Admitting Unavailable Smith Tirado V Attending Unavailable Olivia Robertson Primary Care Unavailable Veronica Kaplan Admitting Unavailable Veronica Kaplan Attending Unavailable Unavailable Primary Care Provider UnavailCORINNE Lozano Attending Unavailable CORINNE QUEZADA Attending Unavailable Allergies Allergy Classification Reported Allergen(s) Allergy Type Date of Onset Reaction(s) Facility (1 source) Penicillin Drug Allergy 12-24-2016 [facility] Repository (2 sources) Penicillin G Drug Allergy [facility] Other (1 source) Penicillin Drug Allergy 01-05-2024 [facility] Repository (6 sources) Penicillins Drug Allergy 01-30-2023 [facility] Medications Current Medications Medication Drug Class(es) Dates Sig (Normalized) Sig (Original) aspirin 81 mg delayed release oral tablet (5 sources) Platelet Aggregation Inhibitor, Nonsteroidal Anti-inflammatory Drug Start: 4 take 1 tablet by mouth once daily Aspirin Low Dose 81 MG EC tablet Take 81 mg by mouth Daily 09/09/2023 Active clopidogrel 75 mg oral tablet (7 sources) P2Y12 Platelet Inhibitor Start: 4 take 1 tablet by mouth once daily clopidogrel (Plavix) 75 MG tablet Take 75 mg by mouth Daily 01/05/2024 Active ketoconazole 20 mg/ml medicated shampoo (5 sources) Azole Antifungal Start: 4 ketoconazole (NIZOral) 2 % shampoo Indications: Tinea versicolor Lather on scalp, back, and chest 2x a week, leave on 5 min before rinsing 120 mL 02/02/2024 Active lisinopril 10 mg oral tablet (2 sources) Angiotensin Converting Enzyme Inhibitor Start: 5 take 1 tablet by mouth once daily lisinopril 10 MG tablet TAKE 1 TABLET BY MOUTH EVERY DAY FOR 30 DAYS 05/25/2024 Active methylPREDNISolone 4 mg oral tablet (1 source) Corticosteroid Start: 2 methylPREDNISolone 4 MG as directed Orally Once a day for 6 days Oct, Active Opzelura 1.5 % cream (3 sources) Start: 3 End: 4 Opzelura 1.5 % cream Indications: Vitiligo Apply to the affected areas twice daily, 30 days 60 g 02/26/2023 02/02/2024 Discontinued (Cost of medication) Start: 02-26-2023 Opzelura 1.5 % cream Indications: Vitiligo Apply to the affected areas twice daily, 30 days 60 g 02/26/2023 Active tacrolimus 0.001 mg/mg topical ointment (5 sources) Calcineurin Inhibitor Immunosuppressant Start: 02-02-2024 tacrolimus (Protopic) 0.1 % ointment Indications: Vitiligo Apply to affected areas, twice a day when flared, 30 day supply 30 g 02/02/2024 Active triamcinolone acetonide 1 mg/ml topical cream (7 sources) Corticosteroid Start: 07-31-2023 triamcinolone (Kenalog) 0.1 % cream Apply topically 2 (two) times a day to affected area 07/31/2023 Active Start: 04-27-2017 KENALOG - 10 m g Apr, 60 mg Completed/Discontinued Medications Medication Drug Class(es) Dates Sig [...] (2 sources) alpha-Adrenergic Tushar Tamsulosin HCl Not-Taking Problems Active Problems Problem Classification Problem Date [...] unspecified; Translations: [HYPERLIPIDEMIA UNSPECIFIED] Onset: 08-02-2021 Chronic Mycoses (2 sources) Pityriasis versicolor; Translations: [Pityriasis versicolor] 02-02-2024 Episodic Other and unspecified benign neoplasm (2 sources) Melanocytic nevus of trunk; Translations: [Melanocytic nevi of trunk] 02-02-2024 Episodic Other injuries and conditions due to [...] injuries and conditions due to external causes (3 sources) Unspecified injury of right wrist, hand and finger(s), initial encounter; Translations: [Finger injury] Onset: 01-05-2024 01-05-2024 Episodic Other non-epithelial cancer of skin (2 sources) History of malignant basal cell neoplasm of skin; Translations: [Personal history of other malignant neoplasm of skin] 02-02-2024 Episodic Other screening for suspected conditions (not mental disorders or infectious disease) (1 source) Encounter for screening for malignant neoplasm of prostate; Translations: [ENC SCREEN MALIG NEOPLASM PROSTATE] Onset: 08-02-2021 Episodic Other skin disorders (2 sources) Lentiginosis; Translations: [Other melanin hyperpigmentation] 02-02-2024 Episodic Other skin disorders (4 sources) Seborrheic keratosis; Translations: [Other seborrheic keratosis] 02-02-2024 Episodic Other skin disorders (2 sources) Sebaceous hyperplasia; Translations: [Other specified follicular disorders] 02-02-2024 Episodic Other skin disorders (2 sources) Vitiligo; Translations: [Vitiligo] 02-02-2024 Episodic Other skin disorders (2 sources) Eruption; Translations: [Rash and other nonspecific skin eruption] 07-13-2024 Episodic Residual codes; unclassified (1 source) Pain, [...] 3V*on 024 XR hand RT min 3V* [facility] [place] [address] XRay Report Signed Patient: Jeff Chawla MR#: [id number] : 1955 Acct:[id number] Age/Sex: 68 / M ADM Date: 01/05/24 Loc: XDUCLY Room: Type: [facility] Attending Dr: Veronica Kaplan [employer] Copies to: Veronica Kaplan APRN Ordering Provider: [...] Romana Silva M.D.01/05/2024 12:22 PM Dictation Location: [place] [address] Transcribed By: [facility] 01/05/24 1222 Dictated By: Romana Silva MD 01/05/24 1219 Signed By: 01/05/24 1222 Normal [facility] 08-18-2023 L Specimen: [id number] Received: 08/19/23 Status: AXEL Ramirez Num: [id number] Spec Type: Cytology Subm Dr: Smith Tirado MD Tissues: A FNA SLIDES NOPATH (RT THRYOUID NOD) Procedures: Cyto Int and Re, PAPSTN/7 Age/ Patient Sex Location Account Attending Physician Jeff Chawla/Ailin LABELL [id number] Smith Tirado MD SPEC NUM: [id number] RECD: 08/19/23 STATUS: AXEL RAMIREZ NUM: [id number] DANIS: 08/18/23- SUBM DR: Smith Tirado MD ENTERED: 08/19/[address] [facility] [address]: Sherron Kngiht MD SPEC TYPE: Cytology DEPT: [facility] SCSONJA ENTERED BY: [id number] RECV BY: [id number] ORDERED: Cyto Int and Re, PAPSTN/7 ORDERED: [...] pap are additionally received. (CC/nh) CPT Codes 13530 Specimen: [id number] Received: 08/19/23 Status: AXEL Ramirez Num: [id number] Spec Type: Cytology Subm Dr: Smith Tirado MD Tissues: A FNA SLIDES NOPATH (RT THRYOUID NOD) Procedures: Cyto Int and Re, PAPSTN/7 Patient: Jeff Chawla [id number] (Continued) Signed (signatur e on file) Ailin Brock MD 08/20/23 1736 Normal [facility] XR knee LT 4V*on 11-05-2021 XR knee LT 4V* [facility] [employer] Other XR knee LT 4V* [facility] [employer] Other XR knee LT 4V* [address] [place] [address] [employer] Other XR knee LT 4V* [place] [address] No rt [employer] Other XR knee LT 4V* XRay Report [employer] Other XR knee LT 4V* Signed [employer] Other XR knee LT 4V* Patient: Jeff Chawla MR#: [id number] [employer] Other XR knee LT 4V* 018 [employer] Other XR knee LT 4V* : 1955 Acct:[id number] [employer] Other XR knee LT 4V* Age/Sex: 66 / M ADM Date: 11/05/21 [employer] Other XR knee LT 4V* Loc: XDUCLY Room: Type: [facility] [employer] Other XR knee LT 4V* Attending Dr: Deirdre DLILP-C [employer] Other XR knee LT 4V* Copies to: DEIRDRE BRADLEYP-Chris [employer] Other XR knee LT 4V* Ordering Provider: DEIRDRE BRADLEY-Chris [employer] Other XR knee LT 4V* Date of Service: 11/05/21 [employer] Other XR knee LT 4V* XR/XR knee LT 4V*: M25.562 [employer] Other XR knee LT 4V* CLINICAL DATA: Patient injured left knee kneeling 6 days ago and was punctured by nails. Continued [employer] Other XR knee LT 4V* pain. [employer] Other XR knee LT 4V* LEFT KNEE - 4 views N [facility] [employer] Other XR knee LT 4V* COMPARISON: None [place] [employer] Other XR knee LT 4V* AP, lateral and oblique views were obtained. There is no acute fracture or dislocation. There is [employer] Other XR knee LT 4V* minor marginal spurring. There are enthesophytes at the insertion of the quadriceps tendon and at [employer] Other XR knee LT 4V* the origin and insertion of the patellar tendon. There is a small knee effusion. Slight [employer] Other XR knee LT 4V* infrapatellar soft tissue swelling is present. No radiopaque foreign bodies are visualized. [employer] Other XR knee LT 4V* XR/XR knee LT 4V* [employer] Other XR knee LT 4V* IMPRESSION: [employer] Other XR knee LT 4V* MILD DEGENERATIVE CHANGES. [employer] Other XR knee LT 4V* NO ACUTE BONY FINDINGS. [employer] Other XR knee LT 4V* Impression dictated by: Romana Silva M.D.11/05/2021 10:33 AM [employer] Other XR knee LT 4V* Dictation Location: [facility]--11 [employer] Other XR knee LT 4V* Transcribed By: PWS 11/05/21 1033 [employer] Other XR knee LT 4V* Dictated By: Romana Silva MD 11/05/21 1030 [employer] Other XR knee LT 4V* Signed By: [employer] Other XR knee LT 4V* 11/05/21 1033 [employer] Other INSULINon 08-02-2021 Insulin 11.1 uIU/mL Normal 2.6-24.9 [facility] Comment on above: Performed By: #### I NSULIN #### [facility] [address] [place] [address] Dr. Bennett Brock CBC AUTO DIFFon 08-01-2021 BASO # 0.1 103/ul Normal 0.0-0.1 [facility] Comment on above: Performed By: #### C BC #### [facility] [address] [place] [address] Dr. Bennett Brock Basophils/100 WBC (Bld) 1.0 % Normal 0.2-2.0 [facility] Comment on above: Performed By: #### C BC #### [facility] [address] [place] [address] Dr. Bennett Brock EO # 0.3 103/ul Normal 0.0-0.7 [facility] Comment on above: Performed By: #### C BC #### [facility] [address] [place] [address] Dr. Bennett Brock Eosinophils/100 WBC (Bld) 6.3 % Normal 0.9-7.0 [facility] Comment on above: Performed By: #### C BC #### [facility] [address] [place] [address] Dr. Bennett Brock Erythrocyte distribution width (RBC) [Ratio] 12.1 % Normal 11.0-15.0 [facility] Comment on above: Performed By: #### C BC #### [facility] [address] [place] [address] Dr. Bennett Brock Hematocrit (Bld) [Volume fraction] 45.3 % Normal 42.0-54.0 [facility] Comment on above: Performed By: #### C BC #### [facility] [address] [place] [address] Dr. Bennett Brock Hemoglobin (Bld) [Mass/Vol] 14.2 g/dL Normal 14.0-18.0 [facility] Comment on above: Performed By: #### C BC #### [facility] [address] [place] [address] Dr. Bennett Brock IG # 0.01 10e3/ul Normal 0.00-0.03 [facility] Comment on above: Performed By: #### C BC #### [facility] [address] [place] [address] Dr. Bennett Brock IG % 0.2 % Normal 0.0-0.5 [facility] Comment on above: Performed By: #### C BC #### [facility] [address] [place] [address] Dr. Bennett Brock LYMPH # 1.4 103/ul Normal 1.2-3.8 [facility] Comment on above: Performed By: #### C BC #### [facility] [address] [place] [address] Dr. Bennett Brock Lymphocytes/100 WBC (Bld) 29.3 % Normal 20.5-60.0 [facility] Comment on above: Performed By: #### C BC #### [facility] [address] [place] [address] Dr. Bennett Brock MANUAL DIFF REQ NO Normal [facility] Comment on above: Performed By: #### C BC #### [facility] [address] [place] [address] Dr. Bennett Brock MCH (RBC) [Entitic mass] 29.0 pg Normal 25.9-34.0 [facility] Comment on above: Performed By: #### C BC #### [facility] [address] [place] [address] Dr. Bennett Brock MCHC (RBC) [Mass/Vol] 31.3 g/dL Normal 29.9-35.2 [facility] Comment on above: Performed By: #### C BC #### [facility] [address] [place] [address] Dr. Bennett Brock MCV (RBC) [Entitic vol] 92.4 fL Normal 80.0-94.0 [facility] Comment on above: Performed By: #### C BC #### [facility] [address] [place] [address] Dr. Bennett Brock MONO # 0.3 103/ul Normal 0.3-0.8 [facility] Comment on above: Performed By: #### C BC #### [facility] [address] [place] [address] Dr. Bennett Brock Monocytes/100 WBC (Bld) 7.1 % Normal 1.7-12.0 [facility] Comment on above: Performed By: #### C BC #### [facility] [address] [place] [address] Dr. Bennett Brock NEUT # 2.7 103/ul Normal 1.4-6.5 [facility] Comment on above: Performed By: #### C BC #### [facility] [address] [place] [address] Dr. Bennett Brock Neutrophils/100 WBC (Bld) 56.1 % Normal 43.0-75.0 [facility] Comment on above: Performed By: #### C BC #### [facility] [address] [place] [address] Dr. Bennett Brock Platelet mean volume (Bld) [Entitic vol] 9.0 fL Critically low 9.5-13.5 [facility] Comment on above: Performed By: #### C BC #### [facility] [address] [place] [address] [address] Bennett Brock PLT 261 103/ul Normal 150-450 [facility] Comment on above: Performed By: #### C BC #### [facility] [address] [place] [address] [address] Bennett Brock RBC 4.90 106/ul Normal 4.70-6.10 [facility] Comment on above: Performed By: #### C BC #### [facility] [address] [place] [address] [address] Bennett Brock WBC 4.8 103/ul Normal 4.0-11.0 [facility] Comment on above: Performed By: #### C BC #### [facility] [address] [place] [address] Dr. Bennett Brock FREE THYROXINE INDEX T7on FTI 2.31 Normal [facility] Comment on above: Performed By: #### C MP, TSH, T7, LIPID #### [facility] [address] [address] [address] Bennett Brock T3U 33.0 % Normal 23.5-40.5 [facility] Comment on above: Performed By: #### C MP, TSH, T7, LIPID #### [facility] [address] [address] [address] Bennett Brock T4 [Mass/Vol] 7.00 ug/dL Normal 5.53-11.00 [place] Comment on above: Performed By: #### C MP, TSH, T7, LIPID #### [facility] [address] [address] [address] Bennett Brock GLYCOHEMOGLOBIN A1Con 2021 ADA RECOMMENDATION ADA THERAPEUTIC TARGET 6.0 - 7.0 ACTION SUGGESTED > 7.0 Normal [facility] Comment on above: Performed By: #### A 1C #### [facility] [address] [place] [address] Dr. Bennett Brock Glucose [Mass/Vol] 126 mg/dL Normal [facility] Comment on above: Performed By: #### A 1C #### [facility] [address] [address] [address] Bennett Brock HbA1c (Bld) [Mass fraction] 6.0 % Normal <=6.0 [facility] Comment on above: Performed By: #### A 1C #### [facility] [address] [address] [address] Bennett Brock IRONon 08-01-2021 Iron [Mass/Vol] 93.0 ug/dL Normal 49.0-181.0 [facility] Comment on above: Performed By: #### P SASC, IRON #### [facility] [address] [address] [address] Bennett Brock LIPID PROFILEon 08-01-2021 CHOL-HDL RATIO NORM SEE BELOW Normal [facility] Comment on above: Result Comment: 3.3 - 4.4 LOW RISK 4.4 - 7.1 AVERAGE RISK 7.1 - 11.0 MODERATE RISK >11.0 HIGH RISK Performed By: #### C MP, TSH, T7, LIPID #### [facility] [address] [address] [address] Bennett Brock Cholesterol [Mass/Vol] 206 mg/dL Critically high <=200 [facility] Comment on above: Performed By: #### C MP, TSH, T7, LIPID #### [facility] [address] [address] [address] Bennett Brock Cholesterol in HDL [Mass/Vol] 49 mg/dL Normal 40-60 [facility] Comment on above: Performed By: #### C MP, TSH, T7, LIPID #### [facility] [address] [address] [address] Bennett Brock Cholesterol in LDL [Mass/Vol] 141.2 mg/dL Normal [facility] Comment on above: Performed By: #### C MP, TSH, T7, LIPID #### [facility] [address] [address] [address] Bennett Brock Cholesterol.total/Ch olesterol in HDL [Mass ratio] 4.2 {ratio} Normal [facility] Comment on above: Performed By: #### C MP, TSH, T7, LIPID #### [facility] [address] [address] [address] Bennett Brock HDL NORMAL > or = 60 mg/dl - LOW CARDIOVASCULAR RISK <40 mg/dl - HIGH CARDIOVASCULAR RISK Normal [facility] Comment on above: Performed By: #### C MP, TSH, T7, LIPID #### [facility] [address] [address] [address] Bennett Brock LDL CALC NORMAL SEE BELOW Normal [facility] Comment on above: Result Comment: <100 mg/dl OPTIMAL 100 - 129 mg/dl NEAR OR ABOVE OPTIMAL 130 - 159 mg/dl BORDERLINE HIGH 160 - 189 mg/dl HIGH >190 mg/dl VERY HIGH Performed By: #### C MP, TSH, T7, LIPID #### [facility] [address] [address] [address] Bennett Brock Triglyceride [Mass/Vol] 79 mg/dL Normal <=150 [facility] Comment on above: Performed By: #### C MP, TSH, T7, LIPID #### [facility] [address] [address] [address] Bennett Brock VLDL CALC 15.8 mg/dL Normal [facility] Comment on above: Performed By: #### C MP, TSH, T7, LIPID #### [facility] [address] [place] [address] Dr. Bennett Brock PROF 14(COMP METB)on 022 Albumin [Mass/Vol] 3.6 g/dL Normal 3.4-5.0 [facility] Comment on above: Performed By: #### C MP, TSH, T7, LIPID #### [facility] [address] [address] [address] Bennett Brock Albumin/Globulin [Mass ratio] 1.1 {ratio} Normal [facility] Comment on above: Performed By: #### C MP, TSH, T7, LIPID #### [facility] [address] [address] [address] Bennett Brock ALP [Catalytic activity/Vol] 83 U/L Normal 46-116 [facility] Comment on above: Performed By: #### C MP, TSH, T7, LIPID #### [facility] [address] [place] [address] Dr. Bennett Brock ALT [Catalytic activity/Vol] 24 U/L Normal 16-63 [facility] Comment on above: Performed By: #### C MP, TSH, T7, LIPID #### [facility] [address] [place] [address] Dr. Bennett Brock Anion gap [Moles/Vol] 10.9 mmol/L Normal [facility] Comment on above: Performed By: #### C MP, TSH, T7, LIPID #### [facility] [address] [place] [address] Dr. Bennett Brock AST [Catalytic activity/Vol] 15 U/L Normal 15-37 [facility] Comment on above: Performed By: #### C MP, TSH, T7, LIPID #### [facility] [address] [place] [address] Dr. Bennett Brock Bilirubin [Mass/Vol] 0.6 mg/dL Normal 0.2-1.3 [facility] Comment on above: Performed By: #### C MP, TSH, T7, LIPID #### [facility] [address] [place] [address] Dr. Bennett Brock Calcium [Mass/Vol] 8.5 mg/dL Normal 8.5-10.1 [facility] Comment on above: Performed By: #### C MP, TSH, T7, LIPID #### [facility] [address] [place] [address] Dr. Bennett Brock Chloride [Moles/Vol] 106 mmol/L Normal 98-107 [facility] Comment on above: Performed By: #### C MP, TSH, T7, LIPID #### [facility] [address] [place] [address] Dr. Bennett Brock CO2 [Moles/Vol] 30.7 mmol/L Critically high 22.0-30.0 [facility] Comment on above: Performed By: #### C MP, TSH, T7, LIPID #### [facility] [address] [address] [address] Bennett Brock Creatinine [Mass/Vol] 0.88 mg/dL Normal 0.66-1.25 [facility] Comment on above: Performed By: #### C MP, TSH, T7, LIPID #### [facility] [address] [address] [address] Bennett Brock EGFR-AF SRI LANKAN >60 Normal >=60 [facility] Comment on above: Performed By: #### C MP, TSH, T7, LIPID #### [facility] [address] [address] [address] Bennett Brock EGFR-NON AF SRI LANKAN >60 Normal >=60 [facility] Comment on above: Performed By: #### C MP, TSH, T7, LIPID #### [facility] [address] [address] [address] Bennett Brock Globulin (S) [Mass/Vol] 3.2 g/dL Normal [facility] Comment on above: Performed By: #### C MP, TSH, T7, LIPID #### [facility] [address] [address] [address] Bennett Brock Glucose [Mass/Vol] 103 mg/dL Normal 74-106 [facility] Comment on above: Performed By: #### C MP, TSH, T7, LIPID #### [facility] [address] [address] [address] Bennett Brock Potassium [Moles/Vol] 4.6 mmol/L Normal 3.4-5.0 [facility] Comment on above: Performed By: #### C MP, TSH, T7, LIPID #### [facility] [address] [address] [address] Bennett Brock Protein [Mass/Vol] 6.8 g/dL Normal 6.1-8.2 [facility] Comment on above: Performed By: #### C MP, TSH, T7, LIPID #### [facility] [address] [address] [address] Bennett Brock Sodium [Moles/Vol] 143 mmol/L Normal 137-145 [facility] Comment on above: Performed By: #### C MP, TSH, T7, LIPID #### [facility] [address] [address] [address] Bennett Brock Urea nitrogen [Mass/Vol] 16.0 mg/dL Normal 7.0-18.0 [facility] Comment on above: Performed By: #### C MP, TSH, T7, LIPID #### [facility] [address] [address] [address] Bennett Brock Urea nitrogen/Creatinine [Mass ratio] 18.2 mg/mg Normal [facility] Comment on above: Performed By: #### C MP, TSH, T7, LIPID #### [facility] [address] [address] [address] Bennett Brock TSHon 08-01-2021 TSH 1.968 uIU/mL Normal 0.470-4.680 [place] Comment on above: Performed By: #### C MP, TSH, T7, LIPID #### [facility] [address] [address] [address] Bennett Brock TSH RANGE SEE BELOW Normal [facility] Comment on above: Result Comment: <0.3 4 UIU/ml HYPERTHYROID 0.34-5.60 UIU/ml EUTHYROID >5.60 UIU/ml HYPOTHYROID Performed By: #### C MP, TSH, T7, LIPID #### [facility] [address] [place] [address] Dr. Bennett Brock Vital Signs Date Time Vital Sign Value Performing Clinician Facility 01-05-2024 11:31 Body height 187.96 cm MD Olivia Robertson Work Phone: [facility] 01-05-2024 11:[id number] Body mass index (BMI) [Ratio] 27.3 kg/m2 MD Olivia Robertson Work Phone: [facility] 01-05-2024 11:31 Body temperature 98.1 [degF] MD Olivia Robertson Work Phone: [facility] 01-05-2024 11:31 Body weight 96.61 kg MD Olivia Robertson Work Phone: [facility] 01-05-2024 11:31-0400 Diastolic blood pressure 77 mm[Hg] MD Olivia Robertson Work Phone: [facility] 01-05-2024 11:31-0400 Heart rate 60 /min MD Olivia Robertson Work Phone: [facility] 01-05-2024 11:31-0400 SaO2% (BldA) [Mass fraction] 97 % MD Olivia Robertson Work Phone: [facility] 01-05-2024 11:31-0400 Systolic blood pressure 147 mm[Hg] MD Olivia Robertson Work Phone: [facility] 11-05-2021 10:30-0400 Body height 186.69 cm Deirdre Bradley Other [employer] Other 11-05-2021 10:30-0400 Body mass index (BMI) [Ratio] 26.42 kg/m2 Deirdre Bradley Other [employer] Other 11-05-2021 10:30-0400 Body temperature 97 [degF] Deirdre Bradley Other [employer] Other 11-05-2021 10:30-0400 Body weight 92.08 kg Deirdre Bradley Other [employer] Other 11-05-2021 10:30-0400 Diastolic blood pressure 95 mm[Hg] Deirdre Bradley Other [employer] Other 11-05-2021 10:30-0400 Respiratory rate 18 /min Deirdre Bradley Other [employer] Other 11-05-2021 10:30-0400 SaO2% (BldA) [Mass fraction] 97 % Deirdre Bradley Other [employer] Other 11-05-2021 10:30-0400 Systolic blood pressure 156 mm[Hg] Deirdre Bradley Other [employer] Other 10-30-2021 13:35-0400 Body height 186.69 cm Kristen Concepcion Other [employer] Other 10-30-2021 13:35-0400 Body mass index (BMI) [Ratio] 26.49 kg/m2 Kristen Concepcion Other [employer] Other 10-30-2021 13:35-0400 Body temperature 98.8 [degF] Kristen Concepcion Other [employer] Other 10-30-2021 13:35-0400 Body weight 92.35 kg Kristen Concepcion Other [employer] Other 10-30-2021 13:35-0400 Diastolic blood pressure 88 mm[Hg] Kristen Concepcion Other [employer] Other 10-30-2021 13:35-0400 Respiratory rate 18 /min Kristen Concepcion Other [employer] Other 10-30-2021 13:35-0400 SaO2% (BldA) [Mass fraction] 96 % Kristen Concepcion Other [employer] Other 10-30-2021 13:35-0400 Systolic blood pressure 139 mm[Hg] Kristen Concepcion Other [employer] Other Encounters Encounter Date Encounter Type Care Provider Facility Start: 07-13-2024 End: 07-13-2024 Bamboo flowsgeo Quezada MD Work Phone: [facility] Start: 07-13-2024 End: 07-13-2024 Candace Quezada MD Work Phone: [facility] Start: 07-13-2024 End: 07-13-2024 Office outpatient visit 10 minutes Corinne Quezada MD Work Phone: [facility] Comment on above: Rash and other nonsp ecific skin eruption (Primary Dx); Seborrheic keratosis Start: 07-13-2024 End: 07-13-2024 ambulatory CORINNE QUEZADA Not Available Start: 02-02-2024 End: 02-02-2024 Bamboo tara Quezada MD Work Phone: [facility] Start: 02-02-2024 End: 02-02-2024 Bamshannen Quezada MD Work Phone: [facility] Start: 02-02-2024 End: 02-02-2024 Office outpatient visit 25 minutes Corinne Quezada MD Work Phone: [facility] Comment on above: Vitiligo (Primary Dx ); Lentigines; Seborrheic keratosis; History of basal cell carcinoma; Sebaceous hyperplasia of face; Melanocytic nevi of trunk; Tinea versicolor Start: 02-02-2024 End: 02-02-2024 ambulatory CORINNE GOODMANI Not Available Start: 01-05-2024 End: 01-05-2024 Patient encounter procedure MD Olivia Robertson Work Phone: [facility] Work Phone: Start: 01-05-2024 End: 01-05-2024 ambulatory MD Olivia Robertson Work Phone: [facility] Work Phone: Start: 01-05-2024 End: 01-05-2024 ambulatory MD Olivia Robertson Work Phone: [facility] Work Phone: Start: 01-05-2024 End: 01-05-2024 Patient encounter procedure MD Olivia Robertson Work Phone: [facility] Work Phone: Start: 08-18-2023 End: 08-18-2023 ambulatory MD Olivia Robertson Work Phone: [facility] Work Phone: Start: 08-18-2023 End: 08-18-2023 Departed Referred MD Olivia Robertson Work Phone: [facility] Start: 07-31-2023 ambulatory [facility] Start: 11-05-2021 End: 11-05-2021 ambulatory Deirdre Bradley Other [facility] [employer] Other Start: 11-05-2021 Office outpatient vi sit 15 minutes Deirdre Bradley [facility] Start: 11-05-2021 End: 11-05-2021 Patient encounter procedure [employer] Deirdre Bradley Work Phone: [facility] Start: 10-30-2021 End: 10-30-2021 ambulatory Kristen Concepcion Other [facility] [employer] Other Start: 10-30-2021 Office outpatient ne w 20 minutes Kristen Concepcion [facility] Start: 08-01-2021 End: 08-02-[address] OLIVIA ROBERTSON Facility:[facility]1 Procedures Date Procedure Procedure Detail Performing Clinician Start: 01-05-2024 Plain X-ray of right hand MD Olivia Robertson Work Phone: Start: 11-05-2021 Radiologic examinati on of knee [employer] Deirdre Bradley Work Phone: Start: 08-01-[address] CANDACE ROBERTSON Comment on above: Performed By: #### P [facility] #### [facility] [address] [place] [address] Dr. Bennett Brock Plan of Treatment Date Care Activity Detail Author Start: 02-16-2025 End: 02-16-2025 Patient encounter procedure 02/16/2025 1:15 PM EST Office Visit [facility] [address] [place] [address] Corinne Quezada MD [address] [place] [address] [facility] Start: 07-13-2024 End: 07-13-2024 Patient encounter procedure 07/13/2024 11:30 AM EDT Office Visit [facility] [address] [place] [address] Corinne Quezada MD [address] [place] [address] Arrived [facility] Comment on above: Arrived Start: 02-02-2024 End: 02-02-2024 Patient encounter procedure 02/02/2024 1:00 PM EDT Office Visit [facility] [address] [place] [address] Corinne Quezada MD [address] [place] [address] Arrived [facility] Comment on above: Arrived XR Hand - right GE 3 Views [facility] Immunizations Immunization Date Immunization Notes Care Provider Fa cility 10-30-2021 tetanus toxoid, reduced diphtheria toxoid, and acellular pertussis vaccine, adsorbed Kristen Concepcion Other [facility] varicella zoster immune globulin Kristen Concepcion Other [employer] Other Payers Date Payer Category Payer Self-pay 2023 Private Health Insurance AARP [id number] 2023 Unknown [id number] 2021 Medicare MEDICARE [id number] 1959 Medicare [id number] 1955 Unknown [id number] 1955 Unknown [id number] 1955 Unknown [id number] Unknown [id number] Unknown [id number] Social History Date Type Detail Facility Unknown if ever smoked [employer] Other Start: 01-30-2023 End: 07-13-2024 Sex Assigned At [employer] Other Start: 1955 Sex Assigned At Male F [facility] Start: 08-19-2023 Tobacco smoking status NHIS Ex-smoker (finding) [facility] Start: 01-30-2023 Tobacco smoking status NHIS Never smoked tobacco [facility] Start: 01-30-2023 Tobacco use and exposure Smokeless tobacco non-user [facility] Start: 01-30-2023 End: 07-13-2024 History of Social function [facility] Start: 1955 Sex assigned at Not on file [facility] History of Present illness Narrative 07-13-2024 Corinne Quezada MD - 07/13/2024 11:30 AM EDT Note Date & Type Note Facility 07-13-2024 History of Presen t illness Narrative Lesions: Location: Back Duration: Few months Quality: denies pain, denies itch, denies bleeding Associated symptoms: non-healing, rough, scaly Treatments: none Established patient All pertinent medical history, medications, and allergies were reviewed. General Exam: alert, oriented to person, place, and time, normal affect, well appearing Unaccompanied A focused exam completed based on patient reported problems, see below: 1. Seborrheic keratosis Torso - Posterior (Back) Stuck on verrucous, elise-brown papules and plaques. Patient was counseled regarding these benign growths. Removal is normally not necessary, but they may be removed if they are symptomatic or for cosmetic reasons. 2. Rash and other nonspecific skin eruption Torso - Posterior (Back) Scattered corkscrew hairs and pink follicular based papules Possible early scurvy, patient denies rigid diets or history of GI malabsorption. Encouraged patient to increase Vitamin C intake via supplements or diet to see if that helps improve condition. Notify office if worsening despite treatment, biopsy in reserve if failing to improve. Next Visit: as needed documented in this encounter [facility] History of Present illness Narrative 02-02-2024 Corinne Quezada MD - 02/02/2024 1:00 PM EDT Note Date & Type Note Facility 02-02-2024 History of Presen t illness Narrative Skin Check Location: Patient requests a skin examination from the waist up, A full body skin exam was offered, patient declined Dermatologic history: history of Basal Cell Carcinoma Last visit: 1 year ago Established patient Follow up Diagnosis: Vitiligo Location: hands, back and neck Last visit: 1 year ago Symptoms: hypopigmentation Status: no change Current treatment: Opzelura cream - patient states this was $4,000 at his pharmacy, so he did not pick this up. All pertinent medical history, medications, and allergies were reviewed. General Exam: alert, oriented to person, place, and time, normal affect, well appearing Unaccompanied A complete skin exam was offered, pt declined. Areas not examined despite medical recommendation: From the waist down Scalp, Examined , exam limited by hair Head, Face Examined Neck Examined Chest Examined Back Examined Abdomen Examined Right arm Examined Left arm Examined Hands Examined Digits,nails: Examined Lymphatics: Not examined 1. Seborrheic keratosis Trunk Stuck on verrucous, elise-brown papules and plaques. Patient was counseled regarding these benign growths. Removal is normally not necessary, but they may be removed if they are symptomatic or for cosmetic reasons. 2. Lentigines Trunk Scattered elise macules in sun-exposed areas. The patient was informed that lentigines are benign pigmented lesions that occur on sun-exposed and sun-damaged skin. No treatment is necessary. Recommended regular use of broad spectrum sunscreen SPF 30 or higher 3. History of basal cell carcinoma Unspecified No evidence of recurrence at BCC scar. The patient was counseled that scars from excisional sites of nonmelanoma skin cancers should be monitored closely for recurrence. The patient was instructed to contact the office for any new, changing, or symptomatic moles. The patient was also instructed to contact the office for any new lesions that develop within or around the previous surgery scar. 4. Sebaceous hyperplasia of face Head - Anterior (Face) Small yellow papules with a central dell. Reassure, benign. Discussed these can be removed for a cosmetic fee with the hyfrecator if desired. 5. Melanocytic nevi of trunk Trunk Scattered evenly pigmented, elise to brown macules and papules, no suspicious features Counseled regarding these benign growths. Rarely, a nevus can develop into malignant melanoma, so any changing nevi should be promptly re-evaluated. 6. Vitiligo Left Hand - Anterior, Neck - Anterior, Neck - Posterior, Right Hand - Anterior Depigmented macule/patch. Flaring today Discussed that this is an autoimmune condition that can be difficult to treat. Treatments include topical medications. Proper use of prescribed medication reviewed, discussed it can take 6 months or longer to see improvement. Start Protopic, apply up to twice daily to the affected areas. Related Medications tacrolimus (Protopic) 0.1 % ointment Apply to affected areas, twice a day when flared, 30 day supply 7. Tinea versicolor Multiple dyspigmented macules and patches with fine scale. The patient was informed that tinea versicolor is a yeast infection of the skin that often occurs during warmer weather and can easily recur. It is easily treated with a topical or oral antifungal medication. Start ketoconazole shampoo twice per week, lathering on the areas in the shower, leaving it sit for about 5-10 minutes before rinsing off. Contact the office if flaring despite treatment. ketoconazole (NIZOral) 2 % shampoo Lather on scalp, back, and chest 2x a week, leave on 5 min before rinsing Next Visit: 1 year documented in this encounter [facility] Evaluation note 11-05-2021 Note Date & Type [...] will help you get into a specialist. [employer] Other Evaluation note 10-30-2021 Note Date & [...] understanding and is agreeable with treatment plan [employer] Other Evaluation note Note Date & Type Note Facility Evaluation note No assessment information availa [facility] Work Phone: Evaluation note Note Date & Type Note Facility Evaluation note Diagnosis Onset Date Jammed interphalangeal joint of finger of right hand [facility] Work Phone: Evaluation note Note Date & Type Note Facility Evaluation note Diagnosis Vitiligo- Primary Lentigines Seborrheic keratosis History of basal cell carcinoma Personal history of other malignant neoplasm of skin Sebaceous hyperplasia of face Melanocytic nevi of trunk Tinea versicolor Pityriasis versicolor documented in this encounter [facility] Evaluation note Note Date & Type Note Facility Evaluation note Diagnosis Rash and other nonspecific skin eruption- Primary Seborrheic keratosis documented in this encounter [facility] History general Narrative - Reported Note Date & Type Note Facility History general Narrative - Reported Type Medical History Prostate cancer Medical History Kidney stones Surgical History prostatectomy Surgical History amputation, toes Hospitalization History see above [employer] Other Summary Purpose Family History No Family [...] Records FoundNo Status Records FoundNo Status Records FoundNo Status Records Found INFORMATION SOURCE (unrecogn ized section and content) DATE CREATED AUTHOR 08/03/2021 [facility] DATE CREATED AUTHOR AUTHOR'S ORGANIZ ATION 08/01/2023 [facility] DATE CREATED AUTHOR AUTHOR'S ORGANIZ ATION 01/14/2024 [facility] DATE CREATED AUTHOR AUTHOR'S ORGANIZ ATION 07/14/2024 [facility] EPIC REASON FOR VISIT (unrecogniz ed section and content) Reason Comments Skin Check Reason Comments Suspicious Skin Lesion Care Teams (unrecognized sec tion and content) [...] BE BASED ON THE PRIMARY CLINICAL RECORDS. [facility]. provides no warranty or guarantee of the accuracy or completeness of information in this document.
== END 2025-01-05 10:25 | disposition home or self-care (01) ==
LOC: US 10:24
PROVIDERS: PCP Family Medicine; Visit Provider Family Medicine
DX: E04.1 Nontoxic single thyroid nodule (principal)
CPT/HCPCS: 76536